=== PATIENT | male | born 1980 | race Caucasian/White ===

== ENCOUNTER 2016-03-22 21:20 | Emergency (ER) | payer MEDICARE, OTHER ==
[2016-03-22] MEDS ORDERED: LORazepam 1 MG TAB PO STA (21:32)
--- NOTE | 2016-03-22 21:34 | ED ---
Anxiety HPI - General Chief Complaint: Anxiety Stated Complaint: panic attacks Time Seen by Provider: 03/22/16 21:28 Source: patient, RN notes reviewed Mode of arrival: wheelchair Limitations: no limitations - History of Present Illness Initial Comments: 35-year-old male presents emergency Department chief complaint panic attack. Patient states he has a history of PTSD, anxiety. Patient states that he does not have is Klonopin states he has not had a for several weeks. Patient states there was a mess up with his refills. Patient states that he is prescribed this by Dr. stringer at [facility]. Patient denies any suicidal or homicidal thoughts. Patient states that he had an argument with his roommate and which this it off. He did have one last night though he was able to talk to a friend to calm down. Patient denies any headache, dizziness, blurred vision, chest pain or shortness breath. Denies any nausea vomiting diarrhea constipation. - Related Data Home Medications: Home Medications Medication Instructions Recorded Confirmed QUEtiapine [SEROquel] 200 mg PO HS 06/30/14 03/22/16 clonazePAM [KlonoPIN] 0.5 mg PO BID 06/30/14 03/22/16 Albuterol Nebulized [Ventolin 2.5 mg INHALATION RT-Q6H PRN 01/26/16 03/22/16 Nebulized] Albuterol Inhaler [Ventolin Hfa 2 puff INHALATION RT-Q6H PRN 03/22/16 03/22/16 Inhaler] buPROPion XL [Wellbutrin Xl] 300 mg PO DAILY 03/22/16 03/22/16 Previous Rx's Medication Instructions Recorded clonazePAM [KlonoPIN] 0.5 mg PO BID #10 tablet 03/22/16 Allergies/Adverse Reactions: Allergies Allergy/AdvReac Type Severity Reaction Status Date / Time varenicline [From Chantix] AdvReac Severe Suicidal Verified 03/22/16 21:33 Thoughts Review of Systems ROS Statement: Those systems with pertinent positive or pertinent negative responses have been documented in the HPI. ROS Other: All systems not noted in ROS Statement are negative. Past Medical History Past Medical History: No Reported History Additional Past Medical History / Comment(s): back pain History of Any Multi-Drug Resistant Organisms: None Reported Past Surgical History: Appendectomy Additional Past Surgical History / Comment(s): oral Past Psychological History: Anxiety, Depression Smoking Status: Current some day smoker Past Alcohol Use History: None Reported Past Drug Use History: None Reported General Exam Limitations: no limitations General appearance: alert, in no apparent distress, anxious ENT exam: Present: normal exam, mucous membranes moist Neck exam: Present: normal inspection. Absent: tenderness, meningismus, lymphadenopathy Respiratory exam: Present: normal lung sounds bilaterally. Absent: respiratory distress, wheezes, rales, rhonchi, stridor Cardiovascular Exam: Present: regular rate, normal rhythm, normal heart sounds. Absent: systolic murmur, diastolic murmur, rubs, gallop, clicks GI/Abdominal exam: Present: soft, normal bowel sounds. Absent: distended, tenderness, guarding, rebound, rigid Psychiatric exam: Present: anxious. Absent: homicidal ideation, suicidal ideation Skin exam: Present: warm, dry, intact, normal color. Absent: rash Course Vital Signs 03/22/16 21:22 Temperature 97.0 F L Pulse Rate 91 Respiratory 22 Rate Blood Pressure 134/91 O2 Sat by Pulse 99 Oximetry Medical Decision Making - Medical Decision Making 35-year-old male presented for a panic attack. Patient does feel improved after Ativan. Patient's maps does reveal that he is due for a prescription. Patient will be discharged with Klonopin with follow-up with his [facility] psychiatrist. Disposition Clinical Impression: Panic attack Disposition: HOME SELF-CARE Condition: Stable Instructions: Generalized Anxiety Disorder (ED) Additional Instructions: Please return to the Emergency Department if symptoms worsen or any other concerns. Prescriptions: clonazePAM [KlonoPIN] 0.5 mg PO BID #10 tablet Time of Disposition: 22:25
[2016-03-22 22:37] VITALS: BP 114/57; PULSE 78; RESP 18; TEMP 98.2
== END 2016-03-22 22:30 | disposition home or self-care (01) ==
LOC: EC 21:20
DX: F41.0 Panic disorder [episodic paroxysmal anxiety] (principal); F41.9 Anxiety disorder, unspecified; F43.10 Post-traumatic stress disorder, unspecified; Z79.899 Other long term (current) drug therapy; Z88.8 Allergy status to other drugs, medicaments and biological substances; F17.200 Nicotine dependence, unspecified, uncomplicated
CPT/HCPCS: 99283

== ENCOUNTER 2017-01-21 16:44 | Emergency (ER) | payer MEDICARE, OTHER ==
[2017-01-21 16:53] LABS: Glucose,Whole Blood 125 mg/dL (75-99)
[2017-01-21 16:56] VITALS: TEMP 98.5
[2017-01-21] MEDS ORDERED: SODIUM CHLORIDE 0.9% 1,000 ML IV STA (17:48)
[2017-01-21] MEDS ORDERED: FAMOTIDINE 20 MG/2 ML VIAL IV STA (17:48)
[2017-01-21] MEDS ORDERED: ONDANSETRON 4 MG/2 ML VIAL IVP STA (17:48)
--- NOTE | 2017-01-21 17:52 | ED ---
General Adult HPI - General Chief complaint: Nausea/Vomiting/Diarrhea Stated complaint: Hypoglycemia Time Seen by Provider: 01/21/17 17:40 Source: patient, RN notes reviewed Mode of arrival: wheelchair Limitations: no limitations - History of Present Illness Initial comments: 36-year-old male presents to the emergency department with concern for hypoglycemia. Patient has been having nausea vomiting and diarrhea on and off for the last week or so. He does not have much down. We did a random check of his glucose at home that was 76 and they were concerned. He states he was feeling a little off when this was taken he said he had a little lightheadedness. He states he has just generalized abdominal cramping. He thought he just had the stomach flu but then he started to feel kind of weak so he thought that he should be evaluated. Besides back pain he denies any significant health history. Patient denies any recent fever, chills, shortness of breath, chest pain, back pain, abdominal pain, numbness or tingling, dysuria or hematuria, constipation, headaches or visual changes, or any other current symptoms. - Related Data Home Medications Medication Instructions Recorded Confirmed QUEtiapine [SEROquel] 200 mg PO HS 06/30/14 01/21/17 clonazePAM [KlonoPIN] 0.5 mg PO TID 06/30/14 01/21/17 buPROPion XL [Wellbutrin Xl] 300 mg PO DAILY 03/22/16 01/21/17 Fluticasone Furoate [Arnuity 1 puff INHALATION RT-DAILY 01/21/17 01/21/17 Ellipta] Previous Rx's Medication Instructions Recorded Ondansetron Odt [Zofran ODT] 4 mg PO Q8HR PRN #20 tab 01/21/17 Allergies Allergy/AdvReac Type Severity Reaction Status Date / Time varenicline [From Chantix] AdvReac Severe Suicidal Verified 01/21/17 18:25 Thoughts Review of Systems ROS Statement: Those systems with pertinent positive or pertinent negative responses have been documented in the HPI. ROS Other: All systems not noted in ROS Statement are negative. Past Medical History Past Medical History: No Reported History Additional Past Medical History / Comment(s): back pain History of Any Multi-Drug Resistant Organisms: None Reported Past Surgical History: Appendectomy Additional Past Surgical History / Comment(s): oral Past Psychological History: Anxiety, Depression Smoking Status: Current every day smoker Past Alcohol Use History: None Reported Past Drug Use History: None Reported General Exam - General Exam Comments Initial Comments: General: The patient is awake and alert, in no distress, and does not appear acutely ill. Eye: Pupils are equal, round and reactive to light, extra-ocular movements are intact; there is normal conjunctiva bilaterally. No signs of icterus. Ears, nose, mouth and throat: There are moist mucous membranes and no oral lesions. Neck: The neck is supple, there is no tenderness. Cardiovascular: There is a regular rate and rhythm. No murmur, rub or gallop is appreciated. Respiratory: Lungs are clear to auscultation, respirations are non-labored, breath sounds are equal. No wheezes, stridor, rales, or rhonchi. Gastrointestinal: Soft, non-distended, non-tender abdomen without masses or organomegaly noted. There is no rebound or guarding present. No CVA tenderness. Bowel sounds are unremarkable. Back: There is no tenderness to palpation in the midline. There is no obvious deformity. No rashes noted. Musculoskeletal: Normal ROM, no tenderness, There is no pedal edema. There is no calf tenderness or swelling. Sensation intact. Pulses equal bilaterally 2+. Neurological: CN II-XII intact, There are no obvious motor or sensory deficits. Coordination appears grossly intact. Speech is normal. Skin: Skin is warm and dry and no rashes or lesions are noted. Psychiatric: Cooperative, appropriate mood & affect, normal judgment. Limitations: no limitations Course Vital Signs 01/21/17 01/21/17 16:54 19:00 Temperature 98.5 F Pulse Rate 89 77 Respiratory 18 17 Rate Blood Pressure 145/88 125/77 O2 Sat by Pulse 96 94 L Oximetry Medical Decision Making - Medical Decision Making 36-year-old male presents emergency Department with a chief complaint of nausea vomiting and diarrhea with concern for hypoglycemia. At this time patient's glucose has been stable. There is been no nausea or vomiting since receiving medication. This time we discussed most likely viral like syndrome. We discussed follow-up return parameters all questions. Patient stated he understood the plan. Discharged. - Lab Data Result diagrams: 01/21/17 18:10 01/21/17 18:10 Lab Results 01/21/17 01/21/17 01/21/17 Range/Units 16:51 18:10 18:10 WBC (3.8-10.6) k/uL RBC (4.30-5.90) m/uL Hgb (13.0-17.5) gm/dL Hct (39.0-53.0) % MCV (80.0-100.0) fL MCH (25.0-35.0) pg MCHC (31.0-37.0) g/dL RDW (11.5-15.5) % Plt Count (150-450) k/uL Neutrophils % % Lymphocytes % % Monocytes % % Eosinophils % % Basophils % % Neutrophils # (1.3-7.7) k/uL Lymphocytes # (1.0-4.8) k/uL Monocytes # (0-1.0) k/uL Eosinophils # (0-0.7) k/uL Basophils # (0-0.2) k/uL Sodium 142 (137-145) mmol/L Potassium 4.3 (3.5-5.1) mmol/L Chloride 104 (98-107) mmol/L Carbon Dioxide 24 (22-30) mmol/L Anion Gap 14 mmol/L BUN 15 (9-20) mg/dL Creatinine 1.16 (0.66-1.25) mg/dL Est GFR (MDRD) Af Amer >60 (>60 ml/min/1.73 sqM) Est GFR (MDRD) Non-Af >60 (>60 ml/min/1.73 sqM) Glucose 112 H (74-99) mg/dL POC Glucose (mg/dL) 125 H (75-99) mg/dL POC Glu Drop Clipper ID Elissa Gage Calcium 10.4 H (8.4-10.2) mg/dL Total Bilirubin 0.6 (0.2-1.3) mg/dL AST 19 (17-59) U/L ALT 31 (21-72) U/L Alkaline Phosphatase 70 (38-126) U/L Total Protein 8.8 H (6.3-8.2) g/dL Albumin 5.3 H (3.5-5.0) g/dL Amylase 55 (30-110) U/L Lipase 39 (23-300) U/L Urine Color Yellow Urine Appearance Clear (Clear) Urine pH 6.0 (5.0-8.0) Ur Specific [place] 1.009 (1.001-1.035) Urine Protein Negative (Negative) Urine Glucose (UA) Negative (Negative) Urine Ketones Negative (Negative) Urine Blood Negative (Negative) Urine Nitrite Negative (Negative) Urine Bilirubin Negative (Negative) Urine Urobilinogen <2.0 (<2.0) mg/dL Ur Leukocyte Esterase Negative (Negative) 01/21/17 Range/Units 18:10 WBC 5.4 (3.8-10.6) k/uL RBC 5.69 (4.30-5.90) m/uL Hgb 16.9 (13.0-17.5) gm/dL Hct 52.3 (39.0-53.0) % MCV 91.9 (80.0-100.0) fL MCH 29.7 (25.0-35.0) pg MCHC 32.3 (31.0-37.0) g/dL RDW 14.5 (11.5-15.5) % Plt Count 241 (150-450) k/uL Neutrophils % 69 % Lymphocytes % 22 % Monocytes % 6 % Eosinophils % 1 % Basophils % 1 % Neutrophils # 3.7 (1.3-7.7) k/uL Lymphocytes # 1.2 (1.0-4.8) k/uL Monocytes # 0.3 (0-1.0) k/uL Eosinophils # 0.0 (0-0.7) k/uL Basophils # 0.0 (0-0.2) k/uL Sodium (137-145) mmol/L Potassium (3.5-5.1) mmol/L Chloride (98-107) mmol/L Carbon Dioxide (22-30) mmol/L Anion Gap mmol/L BUN (9-20) mg/dL Creatinine (0.66-1.25) mg/dL Est GFR (MDRD) Af Amer (>60 ml/min/1.73 sqM) Est GFR (MDRD) Non-Af (>60 ml/min/1.73 sqM) Glucose (74-99) mg/dL POC Glucose (mg/dL) (75-99) mg/dL POC Glu Drop Clipper ID Calcium (8.4-10.2) mg/dL Total Bilirubin (0.2-1.3) mg/dL AST (17-59) U/L ALT (21-72) U/L Alkaline Phosphatase (38-126) U/L Total Protein (6.3-8.2) g/dL Albumin (3.5-5.0) g/dL Amylase (30-110) U/L Lipase (23-300) U/L Urine Color Urine Appearance (Clear) Urine pH (5.0-8.0) Ur Specific [place] (1.001-1.035) Urine Protein (Negative) Urine Glucose (UA) (Negative) Urine Ketones (Negative) Urine Blood (Negative) Urine Nitrite (Negative) Urine Bilirubin (Negative) Urine Urobilinogen (<2.0) mg/dL Ur Leukocyte Esterase (Negative) - Radiology Data Radiology results: report reviewed, image reviewed Disposition Clinical Impression: Nausea & vomiting Disposition: HOME SELF-CARE Condition: Stable Instructions: Acute Nausea and Vomiting (ED) Additional Instructions: Please use medication as discussed. Please follow up with family doctor if symptoms have not improved over the next two days. Please return to the emergency room if your symptoms increase or worsen or for any other concerns. Prescriptions: Ondansetron Odt [Zofran ODT] 4 mg PO Q8HR PRN #20 tab PRN Reason: Nausea Referrals: Buck Hansen DO [Primary Care Provider] - 1-2 days Time of Disposition: 19:43
[2017-01-21 18:21] LABS: Appearance,Urine Clear (Clear); Bilirubin,Urine Negative (Negative); Glucose,Urine (UA) Negative (Negative); Ketones,Urine Negative (Negative); Leukocyte Esterase,Urine Negative (Negative); Nitrite,Urine Negative (Negative); Protein,Urine Negative (Negative); Specific Gravity,Urine 1.009 (1.001-1.035); UA Billing (MACRO vs. MICRO) CHEM; Urobilinogen,Urine <2.0 mg/dL (<2.0)
[2017-01-21 18:40] LABS: Basophils % (A) 1 %; CH 31.2; CHCM 34.1; Eosinophils % (A) 1 %; HCT 52.3 % (39.0-53.0); HDW 2.29; HGB 16.9 gm/dL (13.0-17.5); Luc # (Auto) 0.11; Luc % (Auto) 2; Lymphocytes # (A) 1.2 k/uL (1.0-4.8); Lymphocytes % (A) 22 %; MCH 29.7 pg (25.0-35.0); MCHC 32.3 g/dL (31.0-37.0); MCV 91.9 fL (80.0-100.0); Mean Platelet Volume 9.3; Monocytes # (A) 0.3 k/uL (0-1.0); Monocytes % (A) 6 %; Neutrophils # (A) 3.7 k/uL (1.3-7.7); Neutrophils % (A) 69 %; RBC 5.69 m/uL (4.30-5.90); RDW 14.5 % (11.5-15.5); WBC 5.4 k/uL (3.8-10.6); WBC (Perox) 5.41
[2017-01-21 18:49] LABS: ALT 31 U/L (21-72); AST 19 U/L (17-59); Alkaline Phosphatase 70 U/L (38-126); Amylase 55 U/L (30-110); Anion Gap 14 mmol/L; Blood Urea Nitrogen 15 mg/dL (9-20); Calcium 10.4 mg/dL (8.4-10.2); Carbon Dioxide 24 mmol/L (22-30); Chloride 104 mmol/L (98-107); Glucose 112 mg/dL (74-99); Non-African American GFR(MDRD) >60 (>60 ml/min/1.73 sqM); Potassium 4.3 mmol/L (3.5-5.1); Sodium 142 mmol/L (137-145); Total Bilirubin 0.6 mg/dL (0.2-1.3); Total Protein 8.8 g/dL (6.3-8.2)
[2017-01-21 19:01] VITALS: BP 125/77; PULSE 77; RESP 17
--- NOTE | 2017-01-21 19:20 | XR ---
EXAMINATION TYPE: XR abdomen 2V DATE OF EXAM: 01/21/2017 COMPARISON: 06/30/2014 HISTORY: Nausea and vomiting TECHNIQUE: 3 views FINDINGS: There is no sign of intestinal obstruction or pneumoperitoneum. Fecal pattern is normal. Th ere are no pathologic calcifications over the kidneys. Lung bases are clear. There is no evidence of a mass. IMPRESSION: Nonacute abdomen. No change.
== END 2017-01-21 20:13 | disposition home or self-care (01) ==
LOC: EC 16:44
DX: R11.2 Nausea with vomiting, unspecified (principal); R19.7 Diarrhea, unspecified; R42 Dizziness and giddiness; R10.84 Generalized abdominal pain; F32.9 Major depressive disorder, single episode, unspecified; F41.9 Anxiety disorder, unspecified; F17.200 Nicotine dependence, unspecified, uncomplicated; Z79.51 Long term (current) use of inhaled steroids; Z79.899 Other long term (current) drug therapy; Z88.8 Allergy status to other drugs, medicaments and biological substances; Z90.49 Acquired absence of other specified parts of digestive tract
CPT/HCPCS: 36415; 80053; 82150; 83690; 85025; 81003; 74020; 99285; 96374; 96375; 96361; J2405

== ENCOUNTER 2017-05-17 17:06 | Emergency (ER) | payer MEDICARE, OTHER ==
[2017-05-17 17:17] VITALS: BP 138/72; PULSE 66; RESP 18; TEMP 97.7
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
== END 2017-05-17 18:34 | disposition home or self-care (01) ==
LOC: EC 17:06
DX: S16.1XXA Strain of muscle, fascia and tendon at neck level, initial encounter (principal); F41.9 Anxiety disorder, unspecified; F32.9 Major depressive disorder, single episode, unspecified; F17.200 Nicotine dependence, unspecified, uncomplicated; Z79.51 Long term (current) use of inhaled steroids; Z79.899 Other long term (current) drug therapy; Z88.8 Allergy status to other drugs, medicaments and biological substances; V49.49XA Driver injured in collision with other motor vehicles in traffic accident, initial encounter
CPT/HCPCS: 70450; 72125; 99284

== ENCOUNTER → 2017-06-08 | Outpatient (CLI) | payer MEDICARE ==
--- NOTE | 2017-06-08 10:55 | XR ---
EXAMINATION TYPE: XR thoracic spine complete DATE OF EXAM: 06/08/2017 COMPARISON: NONE HISTORY: Pain Alignment is anatomic. There is no compression deformities. Vertebral body height and disc interspa nena are maintained. There is a curvature of the thoracic spine. Hypertrophic and degenerative change of the spine noted. IMPRESSION: 1. Scoliotic curvature with multilevel degenerative disc disease.
== END | disposition home or self-care (01) ==
LOC: RADXRMAIN 10:02
PROVIDERS: ATTEND Family Medicine
DX: M51.34 Other intervertebral disc degeneration, thoracic region (principal); M41.9 Scoliosis, unspecified
CPT/HCPCS: 72072

== ENCOUNTER → 2018-01-24 | Outpatient (CLI) | payer MEDICARE ==
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
== END | disposition home or self-care (01) ==
LOC: RADXRMAIN 15:49
PROVIDERS: ATTEND Family Medicine
DX: S99.922A Unspecified injury of left foot, initial encounter (principal)

== ENCOUNTER 2018-04-22 19:36 | Emergency (ER) | payer MEDICARE, OTHER ==
[2018-04-22 19:58] VITALS: TEMP 97.6
[2018-04-22] MEDS ORDERED: LORazepam 1 MG TAB PO STA (20:28)
[2018-04-22] MEDS ORDERED: ASPIRIN 81 MG PO STA (20:28)
[2018-04-22] MEDS ORDERED: SODIUM CHLORIDE 0.9% 1,000 ML IV STA ×2 (20:28)
--- NOTE | 2018-04-22 20:29 | ED ---
Recheck HPI - General Source: patient, RN notes reviewed, old records reviewed Mode of arrival: ambulatory Limitations: no limitations <Raeann Kothari - Last Filed: 04/22/18 22:36> <Jordana Hairston - Last Filed: 04/22/18 23:45> - General Chief Complaint: Recheck/Abnormal Lab/Rx Stated Complaint: REED Time Seen by Provider: 04/22/18 20:16 - History of Present Illness Initial Comments: Patient is a 37-year-old male who presents emergency Department today with complaints of episode of chest pain diarrhea headache and dizziness one hour prior to arrival. Patient also reports that he was short of breath. He reports that symptoms started suddenly when he was playing a video game. Patient reports he said multiple episodes of diarrhea. Patient states that he has had chest pain still upon arrival. He reports that he is a nonsmoker. He states that he has had no nausea or vomiting. Denies any other associated symptoms. (Raeann Kothari) - Related Data Home Medications Medication Instructions Recorded Confirmed QUEtiapine [SEROquel] 200 mg PO HS 06/30/14 04/22/18 clonazePAM [KlonoPIN] 0.5 mg PO Q8H PRN 06/30/14 04/22/18 buPROPion XL [Wellbutrin Xl] 300 mg PO DAILY 03/22/16 04/22/18 Fluticasone Furoate [Arnuity 1 puff INHALATION RT-DAILY 01/21/17 04/22/18 Ellipta] Indomethacin [Indocin] 50 mg PO TID 04/22/18 04/22/18 QUEtiapine [SEROquel] 50 mg PO HS 04/22/18 04/22/18 buPROPion HCL [Wellbutrin XL] 150 mg PO DAILY 04/22/18 04/22/18 Allergies Allergy/AdvReac Type Severity Reaction Status Date / Time varenicline [From Chantix] AdvReac Severe Suicidal Verified 04/22/18 20:34 Thoughts Review of Systems ROS Other: All systems not noted in ROS Statement are negative. <Raeann Kothari - Last Filed: 04/22/18 22:36> ROS Other: All systems not noted in ROS Statement are negative. <Jordana Hairston P - Last Filed: 04/22/18 23:45> ROS Statement: Those systems with pertinent positive or pertinent negative responses have been documented in the HPI. Past Medical History Past Medical History: No Reported History Additional Past Medical History / Comment(s): back pain History of Any Multi-Drug Resistant Organisms: None Reported Past Surgical History: Appendectomy Additional Past Surgical History / Comment(s): oral Past Psychological History: Anxiety, Depression Smoking Status: Current every day smoker Past Alcohol Use History: None Reported Past Drug Use History: None Reported <Raeann Kothari - Last Filed: 04/22/18 22:36> General Exam Limitations: no limitations General appearance: alert, in no apparent distress Head exam: Present: atraumatic, normocephalic, normal inspection Eye exam: Present: normal appearance, PERRL, EOMI. Absent: scleral icterus, conjunctival injection, periorbital swelling ENT exam: Present: normal exam, mucous membranes moist Neck exam: Present: normal inspection. Absent: tenderness, meningismus, lymphadenopathy Respiratory exam: Present: normal lung sounds bilaterally. Absent: respiratory distress, wheezes, rales, rhonchi, stridor Cardiovascular Exam: Present: regular rate, normal rhythm, normal heart sounds. Absent: systolic murmur, diastolic murmur, rubs, gallop, clicks GI/Abdominal exam: Present: soft, tenderness (Patient reports that left lower quadrant tenderness likely related to diarrhea.), normal bowel sounds. Absent: distended, guarding, rebound, rigid Extremities exam: Present: normal inspection, full ROM, normal capillary refill. Absent: tenderness, pedal edema, joint swelling, calf tenderness Back exam: Present: normal inspection Neurological exam: Present: alert, oriented X3, CN II-XII intact Psychiatric exam: Present: normal affect, normal mood <Raeann Kothari - Last Filed: 04/22/18 22:36> <Jordana Hairston - Last Filed: 04/22/18 23:45> - General Exam Comments Initial Comments: Anxious 37-year-old male. (Raeann Kothari) Vital Signs 04/22/18 04/22/18 04/22/18 19:54 20:15 20:20 Temperature 97.6 F Pulse Rate 110 H 92 Respiratory 18 11 L Rate Blood Pressure 99/68 O2 Sat by Pulse 99 99 99 Oximetry 04/22/18 04/22/18 04/22/18 20:30 20:43 20:50 Temperature Pulse Rate 92 89 Respiratory 19 16 19 Rate Blood Pressure O2 Sat by Pulse 100 98 99 Oximetry 04/22/18 04/22/18 04/22/18 21:10 21:30 21:40 Temperature Pulse Rate 96 101 H 88 Respiratory 19 19 18 Rate Blood Pressure 114/92 114/92 113/73 O2 Sat by Pulse 97 98 98 Oximetry 04/22/18 22:10 Temperature Pulse Rate 92 Respiratory 16 Rate Blood Pressure 115/80 O2 Sat by Pulse 97 Oximetry Medical Decision Making - Lab Data Result diagrams: 04/22/18 20:21 04/22/18 20:21 - Radiology Data Radiology results: report reviewed <Raeann Kothari - Last Filed: 04/22/18 22:36> - Lab Data Result diagrams: 04/22/18 20:21 04/22/18 20:21 <Jordana Hairston - Last Filed: 04/22/18 23:45> - Medical Decision Making 37-year-old male presents measurement today with complaints of chest pain dizziness episodes of diarrhea all happy one part where hour prior to arrival. Symptoms started when he is playing a video game. He appeared quite anxious on initial exam. He was given fluids and 0.5 mg of Ativan and aspirin. He continued to complain of some chest pain. His EKG does show a couple of T-wave abnormalities noted. Initial troponin and other lab work was unremarkable. On reevaluation he states he is feeling much better. He states he does still have 1 out of 10 for chest pain. Offered to admit the Patient with consult to cardiology. Patient states he feels well and will likely to be discharged home. I discussed the Patient be signing AGAINST MEDICAL ADVICE. Discussed strict return parameters. Patient states he will follow-up with his PCP. ( Raeann Kothari) I was available for consultation in the emergency department. The history and physical exam were done by the midlevel provider. I was consulted for this patient's care. I reviewed the case with the midlevel provider and based on their presentation of the patient, I agree with the assessment, medical decision making and plan of care as documented. I did review the patient's previous EKG as well as EKG obtained today, did note that there is new T-wave inversions in the lateral leads. I did agree with the plan for admission to the hospital for further valuation by cardiology given the patient's strong family history and EKG changes as well as persistent chest pain. Patient was not willing to stay and signed out AMA. (Jordana Hairston) - Lab Data Lab Results 04/22/18 04/22/18 04/22/18 Range/Units 20:21 20:21 20:21 WBC 11.0 H (3.8-10.6) k/uL RBC 5.86 (4.30-5.90) m/uL Hgb 17.8 H (13.0-17.5) gm/dL Hct 51.1 (39.0-53.0) % MCV 87.2 (80.0-100.0) fL MCH 30.3 (25.0-35.0) pg MCHC 34.8 (31.0-37.0) g/dL RDW 13.6 (11.5-15.5) % Plt Count 280 (150-450) k/uL Neutrophils % 83 % Lymphocytes % 11 % Monocytes % 3 % Eosinophils % 2 % Basophils % 0 % Neutrophils # 9.1 H (1.3-7.7) k/uL Lymphocytes # 1.2 (1.0-4.8) k/uL Monocytes # 0.3 (0-1.0) k/uL Eosinophils # 0.3 (0-0.7) k/uL Basophils # 0.0 (0-0.2) k/uL PT (9.0-12.0) sec INR (<1.2) APTT (22.0-30.0) sec Sodium 141 (137-145) mmol/L Potassium 3.5 (3.5-5.1) mmol/L Chloride 103 (98-107) mmol/L Carbon Dioxide 23 (22-30) mmol/L Anion Gap 15 mmol/L BUN 22 H (9-20) mg/dL Creatinine 1.40 H (0.66-1.25) mg/dL Est GFR (CKD-EPI)AfAm 73 (>60 ml/min/1.73 sqM) Est GFR (CKD-EPI)NonAf 63 (>60 ml/min/1.73 sqM) Glucose 158 H (74-99) mg/dL Calcium 9.7 (8.4-10.2) mg/dL Magnesium 1.8 (1.6-2.3) mg/dL Total Bilirubin 0.6 (0.2-1.3) mg/dL AST 21 (17-59) U/L ALT 35 (21-72) U/L Alkaline Phosphatase 81 (38-126) U/L Total Creatine Kinase 99 (55-170) U/L CK-MB (CK-2) 0.9 (0.0-2.4) ng/mL CK-MB (CK-2) Rel Index 0.9 Troponin I <0.012 (0.000-0.034) ng/mL Total Protein 8.1 (6.3-8.2) g/dL Albumin 4.8 (3.5-5.0) g/dL Amylase 63 (30-110) U/L Lipase 62 (23-300) U/L 04/22/18 Range/Units 20:21 WBC (3.8-10.6) k/uL RBC (4.30-5.90) m/uL Hgb (13.0-17.5) gm/dL Hct (39.0-53.0) % MCV (80.0-100.0) fL MCH (25.0-35.0) pg MCHC (31.0-37.0) g/dL RDW (11.5-15.5) % Plt Count (150-450) k/uL Neutrophils % % Lymphocytes % % Monocytes % % Eosinophils % % Basophils % % Neutrophils # (1.3-7.7) k/uL Lymphocytes # (1.0-4.8) k/uL Monocytes # (0-1.0) k/uL Eosinophils # (0-0.7) k/uL Basophils # (0-0.2) k/uL PT 11.6 (9.0-12.0) sec INR 1.1 (<1.2) APTT 22.5 (22.0-30.0) sec Sodium (137-145) mmol/L Potassium (3.5-5.1) mmol/L Chloride (98-107) mmol/L Carbon Dioxide (22-30) mmol/L Anion Gap mmol/L BUN (9-20) mg/dL Creatinine (0.66-1.25) mg/dL Est GFR (CKD-EPI)AfAm (>60 ml/min/1.73 sqM) Est GFR (CKD-EPI)NonAf (>60 ml/min/1.73 sqM) Glucose (74-99) mg/dL Calcium (8.4-10.2) mg/dL Magnesium (1.6-2.3) mg/dL Total Bilirubin (0.2-1.3) mg/dL AST (17-59) U/L ALT (21-72) U/L Alkaline Phosphatase (38-126) U/L Total Creatine Kinase (55-170) U/L CK-MB (CK-2) (0.0-2.4) ng/mL CK-MB (CK-2) Rel Index Troponin I (0.000-0.034) ng/mL Total Protein (6.3-8.2) g/dL Albumin (3.5-5.0) g/dL Amylase (30-110) U/L Lipase (23-300) U/L 04/22/18 22:40 EKG shows sinus rhythm with occasional premature supraventricular [place]. Nonspecific T-wave abnormality. Ventricular rate of 70 bpm. Verbal is 158. QRS duration 88. QTQTC 3-2/412 ms. (Raeann Kothari) - Radiology Data Normal chest x-ray. (Raeann Kothari) Disposition Is patient prescribed a controlled substance at d/c from ED?: No Time of Disposition: 22:32 <Raeann Kothari - Last Filed: 04/22/18 22:36> <Jordana Hairston - Last Filed: 04/22/18 23:45> Clinical Impression: Chest pain Disposition: Left Against Medical Advice Condition: Stable Instructions (If sedation given, give patient instructions): Chest Pain (ED) Additional Instructions: Patient myself close follow-up with primary care physician. Return to emergency department if any alarming signs or symptoms occur. Referrals: Buck Hansen DO [Primary Care Provider] - 1-2 days
[2018-04-22 20:51] LABS: Basophils % (A) 0 %; Eosinophils # (A) 0.3 k/uL (0-0.7); Eosinophils % (A) 2 %; HCT 51.1 % (39.0-53.0); HGB 17.8 gm/dL (13.0-17.5); Lymphocytes # (A) 1.2 k/uL (1.0-4.8); Lymphocytes % (A) 11 %; MCH 30.3 pg (25.0-35.0); MCHC 34.8 g/dL (31.0-37.0); MCV 87.2 fL (80.0-100.0); Mean Platelet Volume 8.1; Monocytes # (A) 0.3 k/uL (0-1.0); Monocytes % (A) 3 %; Neutrophils # (A) 9.1 k/uL (1.3-7.7); Neutrophils % (A) 83 %; Platelet Count 280 k/uL (150-450); RBC 5.86 m/uL (4.30-5.90); RDW 13.6 % (11.5-15.5)
[2018-04-22 21:00] LABS: INR 1.1 (<1.2); Partial Thromboplastin Time 22.5 sec (22.0-30.0); Prothrombin Time 11.6 sec (9.0-12.0)
[2018-04-22 21:01] LABS: Albumin 4.8 g/dL (3.5-5.0); Calcium 9.7 mg/dL (8.4-10.2); Magnesium 1.8 mg/dL (1.6-2.3); Potassium 3.5 mmol/L (3.5-5.1); Total Bilirubin 0.6 mg/dL (0.2-1.3); Total Protein 8.1 g/dL (6.3-8.2)
[2018-04-22 21:05] LABS: Creatine Kinase 99 U/L (55-170)
--- NOTE | 2018-04-22 21:07 | XR ---
EXAMINATION TYPE: XR chest 2V DATE OF EXAM: 04/22/2018 COMPARISON: 12/28/2015 HISTORY: Chest pain TECHNIQUE: Frontal and lateral views of the chest are obtained. FINDINGS: Heart and mediastinum are normal. Lungs are clear. Diaphragm is normal. Bony thorax appear s normal. IMPRESSION: Normal chest. No change.
[2018-04-22 21:18] LABS: Creatine Kinase MB 0.9 ng/mL (0.0-2.4); Troponin I <0.012 ng/mL (0.000-0.034)
[2018-04-22 22:39] VITALS: BP 115/80; PULSE 92
[2018-04-22 22:40] VITALS: RESP 16
== END 2018-04-22 22:34 | disposition left against medical advice (07) ==
LOC: EC 19:36
DX: R07.9 Chest pain, unspecified (principal); R42 Dizziness and giddiness; R19.7 Diarrhea, unspecified; R06.02 Shortness of breath; R51 Headache; R10.814 Left lower quadrant abdominal tenderness; F41.9 Anxiety disorder, unspecified; F32.9 Major depressive disorder, single episode, unspecified; F17.200 Nicotine dependence, unspecified, uncomplicated; Z79.51 Long term (current) use of inhaled steroids; Z79.899 Other long term (current) drug therapy; Z88.8 Allergy status to other drugs, medicaments and biological substances
CPT/HCPCS: 36415; 71046; 80053; 82150; 82550; 82553; 83690; 83735; 84484; 85025; 85610; 85730; 93005; 96360; 99285

== ENCOUNTER 2018-09-02 15:09 | Emergency (ER) | payer MEDICARE ==
[2018-09-02 16:02] LABS: Basophils # (A) 0.1 k/uL (0-0.2); Basophils % (A) 1 %; Eosinophils # (A) 0.1 k/uL (0-0.7); Eosinophils % (A) 3 %; HGB 14.2 gm/dL (13.0-17.5); Lymphocytes # (A) 1.1 k/uL (1.0-4.8); Lymphocytes % (A) 27 %; MCH 29.5 pg (25.0-35.0); MCHC 34.5 g/dL (31.0-37.0); MCV 85.4 fL (80.0-100.0); Mean Platelet Volume 8.8; Monocytes # (A) 0.2 k/uL (0-1.0); Monocytes % (A) 6 %; Neutrophils # (A) 2.4 k/uL (1.3-7.7); Neutrophils % (A) 60 %; Platelet Count 169 k/uL (150-450); RDW 13.6 % (11.5-15.5)
[2018-09-02 16:13] LABS: ALT 49 U/L (21-72); AST 46 U/L (17-59); African American GFR (CKD) >90 (>60 ml/min/1.73 sqM); Albumin 4.5 g/dL (3.5-5.0); Alkaline Phosphatase 61 U/L (38-126); Amylase 61 U/L (30-110); Anion Gap 10 mmol/L; Blood Urea Nitrogen 12 mg/dL (9-20); Calcium 9.5 mg/dL (8.4-10.2); Carbon Dioxide 26 mmol/L (22-30); Chloride 103 mmol/L (98-107); Glucose 119 mg/dL (74-99); Lipase 23 U/L (23-300); Potassium 3.9 mmol/L (3.5-5.1); Sodium 139 mmol/L (137-145); Total Bilirubin 0.5 mg/dL (0.2-1.3); Total Protein 7.4 g/dL (6.3-8.2)
--- NOTE | 2018-09-02 16:25 | XR ---
EXAMINATION TYPE: XR KUB DATE OF EXAM: 09/02/2018 4:10 PM CLINICAL HISTORY: Mid abdominal pain and dysuria TECHNIQUE: Single upright image of the abdomen is obtained. COMPARISON: None. FINDINGS: Mild levoscoliosis of the thoracolumbar spine is seen. Scattered gas is seen in non-distend ed small bowel loops. Gas and fecal material is seen in non-distended colon. There is no visceromegal y, pneumoperitoneum, or abnormal calcification appreciated. The lung bases are clear and the osseous structures are intact. IMPRESSION: Nonobstructive bowel gas pattern. No radiopaque calculi in the abdomen or pelvis.
[2018-09-02 17:09] LABS: Appearance,Urine Clear (Clear); Bilirubin,Urine Negative (Negative); Blood,Urine Negative (Negative); Color,Urine Light Yellow; Glucose,Urine (UA) Negative (Negative); Ketones,Urine Negative (Negative); Leukocyte Esterase,Urine Negative (Negative); Nitrite,Urine Negative (Negative); PH, Urine 6.5 (5.0-8.0); Protein,Urine Negative (Negative); Urobilinogen,Urine <2.0 mg/dL (<2.0)
--- NOTE | 2018-09-02 17:30 | ED ---
Abdominal Pain HPI - General Chief Complaint: Abdominal Pain Stated Complaint: Rectal bleed Time Seen by Provider: 09/02/18 16:41 Source: patient Mode of arrival: ambulatory Limitations: no limitations - History of Present Illness Initial Comments: Patient is a 37-year-old male presents emergency Department with abdominal pain. Patient reports generalized pain that has started this morning and has maintained in severity. Patient reports the pain is colicky in nature and rates it a 6. Patient reports chronic abdominal pain due to diverticulosis and IBS. Patient reports the pain is not related to oral fluid intake. Patient denies fever, nausea, vomiting, diarrhea. Patient denies testicular pain, dysuria, increased urgency or frequency. Patient denies taking any medication to alleviate the pain. Patient denies shortness of breath, chest pain or chest tightness. - Related Data Home Medications Medication Instructions Recorded Confirmed QUEtiapine [SEROquel] 200 mg PO HS 06/30/14 04/22/18 clonazePAM [KlonoPIN] 0.5 mg PO Q8H PRN 06/30/14 04/22/18 buPROPion XL [Wellbutrin Xl] 300 mg PO DAILY 03/22/16 04/22/18 Fluticasone Furoate [Arnuity 1 puff INHALATION RT-DAILY 01/21/17 04/22/18 Ellipta] Indomethacin [Indocin] 50 mg PO TID 04/22/18 04/22/18 QUEtiapine [SEROquel] 50 mg PO HS 04/22/18 04/22/18 buPROPion HCL [Wellbutrin XL] 150 mg PO DAILY 04/22/18 04/22/18 Allergies Allergy/AdvReac Type Severity Reaction Status Date / Time varenicline [From Chantix] AdvReac Severe Suicidal Verified 09/02/18 15:43 Thoughts Review of Systems ROS Statement: Those systems with pertinent positive or pertinent negative responses have been documented in the HPI. ROS Other: All systems not noted in ROS Statement are negative. Past Medical History Past Medical History: Asthma Additional Past Medical History / Comment(s): back pain, ibs History of Any Multi-Drug Resistant Organisms: None Reported Past Surgical History: Appendectomy Additional Past Surgical History / Comment(s): oral Past Psychological History: Anxiety, Depression Smoking Status: Current every day smoker Past Alcohol Use History: None Reported Past Drug Use History: None Reported General Exam Limitations: no limitations General appearance: alert, in no apparent distress Head exam: Present: atraumatic, normocephalic, normal inspection Eye exam: Present: normal appearance, PERRL, EOMI Pupils: Present: normal accommodation ENT exam: Present: normal exam, mucous membranes moist Neck exam: Present: normal inspection, full ROM Respiratory exam: Present: normal lung sounds bilaterally Cardiovascular Exam: Present: regular rate, normal rhythm, normal heart sounds GI/Abdominal exam: Present: soft, tenderness (Generalized abdominal tenderness on palpation. Negative psoas and Rovsing), normal bowel sounds. Absent: distended, guarding, rebound Extremities exam: Present: normal inspection, full ROM Back exam: Present: normal inspection, full ROM. Absent: tenderness, CVA tenderness (R), CVA tenderness (L) Neurological exam: Present: alert, oriented X3 Psychiatric exam: Present: normal affect, normal mood Skin exam: Present: warm, intact, normal color Course Vital Signs 09/02/18 09/02/18 09/02/18 15:42 16:43 18:21 Temperature 97.8 F 98.7 F 98.7 F Pulse Rate 87 69 69 Respiratory 18 16 16 Rate Blood Pressure 130/92 149/99 149/99 O2 Sat by Pulse 96 98 98 Oximetry Medical Decision Making - Medical Decision Making Patient is a 37-year-old male presents emergency Department with generalized abdominal pain. KUB suggestive of a nonobstructing bowel gas pattern. No radiopaque calculi in the abdomen and pelvis. Labs and UA are unremarkable except for mildly elevated blood glucose. Based on history and physical examination suspect the pain to be related to the diverticulosis and IBS. Patient does not have leukocytosis or fever thus antibiotics are not warranted. On reevaluation patient reports he feels better and the pain has slowly subsided. Patient advised to return to emergency department if he develops fever, nausea, vomiting, diarrhea. Patient is understanding and agreeable with the treatment plan. Patient reports that he is comfortable and ready to leave.. Patient advised to drink more water and increase his intake of fiber. Patient advised to alternate between Tylenol and ibuprofen for pain control. Patient was to follow with GI. Case discussed with physician. - Lab Data Result diagrams: 09/02/18 15:50 09/02/18 15:50 Lab Results 09/02/18 09/02/18 09/02/18 Range/Units 15:50 15:50 17:00 WBC 4.0 (3.8-10.6) k/uL RBC 4.80 (4.30-5.90) m/uL Hgb 14.2 (13.0-17.5) gm/dL Hct 41.0 (39.0-53.0) % MCV 85.4 (80.0-100.0) fL MCH 29.5 (25.0-35.0) pg MCHC 34.5 (31.0-37.0) g/dL RDW 13.6 (11.5-15.5) % Plt Count 169 (150-450) k/uL Neutrophils % 60 % Lymphocytes % 27 % Monocytes % 6 % Eosinophils % 3 % Basophils % 1 % Neutrophils # 2.4 (1.3-7.7) k/uL Lymphocytes # 1.1 (1.0-4.8) k/uL Monocytes # 0.2 (0-1.0) k/uL Eosinophils # 0.1 (0-0.7) k/uL Basophils # 0.1 (0-0.2) k/uL Sodium 139 (137-145) mmol/L Potassium 3.9 (3.5-5.1) mmol/L Chloride 103 (98-107) mmol/L Carbon Dioxide 26 (22-30) mmol/L Anion Gap 10 mmol/L BUN 12 (9-20) mg/dL Creatinine 0.78 (0.66-1.25) mg/dL Est GFR (CKD-EPI)AfAm >90 (>60 ml/min/1.73 sqM) Est GFR (CKD-EPI)NonAf >90 (>60 ml/min/1.73 sqM) Glucose 119 H (74-99) mg/dL Calcium 9.5 (8.4-10.2) mg/dL Total Bilirubin 0.5 (0.2-1.3) mg/dL AST 46 (17-59) U/L ALT 49 (21-72) U/L Alkaline Phosphatase 61 (38-126) U/L Total Protein 7.4 (6.3-8.2) g/dL Albumin 4.5 (3.5-5.0) g/dL Amylase 61 (30-110) U/L Lipase 23 (23-300) U/L Urine Color Light Yellow Urine Appearance Clear (Clear) Urine pH 6.5 (5.0-8.0) Ur Specific [place] 1.010 (1.001-1.035) Urine Protein Negative (Negative) Urine Glucose (UA) Negative (Negative) Urine Ketones Negative (Negative) Urine Blood Negative (Negative) Urine Nitrite Negative (Negative) Urine Bilirubin Negative (Negative) Urine Urobilinogen <2.0 (<2.0) mg/dL Ur Leukocyte Esterase Negative (Negative) Disposition Clinical Impression: Abdominal pain Disposition: HOME SELF-CARE Condition: Stable Instructions (If sedation given, give patient instructions): Abdominal Pain (ED) Additional Instructions: Please return to emergency department if he starts to develop fever, chills, nausea, vomiting or pain does not resolve. Please follow-up with a rags laborer. Please return to emergency department if symptoms worsen. Please drink a lot of water and fiber. Is patient prescribed a controlled substance at d/c from ED?: No Referrals: Buck Hansen DO [Primary Care Provider] - 1-2 days Time of Disposition: 18:17
[2018-09-02 18:21] VITALS: BP 149/99; PULSE 69; RESP 16; TEMP 98.7
== END 2018-09-02 18:23 | disposition home or self-care (01) ==
LOC: EC 15:09
DX: R10.84 Generalized abdominal pain (principal); R73.9 Hyperglycemia, unspecified; J45.909 Unspecified asthma, uncomplicated; F41.9 Anxiety disorder, unspecified; F32.9 Major depressive disorder, single episode, unspecified; F17.200 Nicotine dependence, unspecified, uncomplicated; Z79.51 Long term (current) use of inhaled steroids; Z79.899 Other long term (current) drug therapy; Z88.8 Allergy status to other drugs, medicaments and biological substances; Z90.89 Acquired absence of other organs
CPT/HCPCS: 36415; 74018; 80053; 81003; 82150; 83690; 85025; 99284

== ENCOUNTER 2019-04-03 19:30 | Emergency (ER) | payer MEDICARE, OTHER ==
[2019-04-03] MEDS ORDERED: KETOROLAC 30 MG/ML 1 ML VIAL IVP STA (21:22)
[2019-04-03] MEDS ORDERED: ONDANSETRON 4 MG/2 ML VIAL IVP STA (21:22)
[2019-04-03] MEDS ORDERED: SODIUM CHLORIDE 0.9% 1,000 ML IV STA (21:22)
[2019-04-03 21:38] LABS: Basophils # (A) 0.2 k/uL (0-0.2); Basophils % (A) 3 %; Eosinophils # (A) 0.1 k/uL (0-0.7); Eosinophils % (A) 2 %; HCT 47.2 % (39.0-53.0); HGB 15.7 gm/dL (13.0-17.5); Lymphocytes # (A) 1.6 k/uL (1.0-4.8); Lymphocytes % (A) 27 %; MCH 29.4 pg (25.0-35.0); MCHC 33.2 g/dL (31.0-37.0); MCV 88.6 fL (80.0-100.0); Mean Platelet Volume 9.2; Monocytes # (A) 0.4 k/uL (0-1.0); Monocytes % (A) 6 %; Neutrophils # (A) 3.5 k/uL (1.3-7.7); Neutrophils % (A) 60 %; Platelet Count 235 k/uL (150-450); RBC 5.33 m/uL (4.30-5.90); RDW 12.9 % (11.5-15.5); WBC 5.8 k/uL (3.8-10.6)
[2019-04-03 21:46] LABS: ALT 28 U/L (4-49); AST 28 U/L (17-59); African American GFR (CKD) >90 (>60 ml/min/1.73 sqM); Alkaline Phosphatase 60 U/L (38-126); Amylase 62 U/L (30-110); Anion Gap 13 mmol/L; Appearance,Urine Clear (Clear); Bilirubin,Urine Negative (Negative); Blood Urea Nitrogen 17 mg/dL (9-20); Blood,Urine Negative (Negative); Calcium 9.7 mg/dL (8.4-10.2); Carbon Dioxide 23 mmol/L (22-30); Chloride 104 mmol/L (98-107); Color,Urine Yellow; Glucose 108 mg/dL (74-99); Glucose,Urine (UA) Negative (Negative); Ketones,Urine Negative (Negative); Leukocyte Esterase,Urine Negative (Negative); Mucus,Urine Many /hpf; Nitrite,Urine Negative (Negative); Non-African American GFR(CKD) >90 (>60 ml/min/1.73 sqM); PH, Urine 5.5 (5.0-8.0); Potassium 4.2 mmol/L (3.5-5.1); Protein,Urine 1+ (Negative); RBC,Urine <1 /hpf (0-5); Sodium 140 mmol/L (137-145); Total Bilirubin 0.8 mg/dL (0.2-1.3); Total Protein 8.5 g/dL (6.3-8.2); WBC,Urine 2 /hpf (0-5)
--- NOTE | 2019-04-03 21:55 | XR ---
EXAMINATION TYPE: XR KUB DATE OF EXAM: 04/03/2019 COMPARISON: 09/02/2018 HISTORY: Abdominal pain TECHNIQUE: 2 views supine FINDINGS: There is no sign of intestinal obstruction or pneumoperitoneum. Fecal pattern is normal. Niki ng bases are clear. There are no pathologic calcifications over the kidneys. IMPRESSION: Nonacute abdomen. No change.
--- NOTE | 2019-04-03 23:27 | CT ---
EXAMINATION TYPE: CT abdomen pelvis w con DATE OF EXAM: 04/03/2019 COMPARISON: HISTORY: Patient presents with abdomial pain. CT DLP: 1496.3 mGycm Automated exposure control for dose reduction was used. CONTRAST: Performed with IV Contrast, patient injected with 100mL mL of Isovue 300. None lung bases are clear. There is no pleural effusion. Heart size is normal. There is no cardial ef fusion. Liver spleen pancreas gallbladder appear normal. Bile ducts are not dilated. The stomach is i ntact. There is no adrenal mass. Kidneys show satisfactory contrast opacification. There is no hydronephrosi s. There is no retroperitoneal adenopathy. Bladder distends smoothly. There is no inguinal hernia. Th ere is no free fluid in the pelvis. There are a few sigmoid diverticula. There is no sign of divertic ulitis. There is clip apparently from appendectomy. There is no mesenteric edema. There is no ascites or free air. There is no sign of a bowel obstructio n. Lumbar spine is intact. Bony pelvis is intact. IMPRESSION: Negative CT scan abdomen and pelvis. Scattered small sigmoid diverticula without evidence of divertic ulitis.
--- NOTE | 2019-04-03 23:48 | ED ---
Abdominal Pain HPI - General Chief Complaint: Abdominal Pain Stated Complaint: rib pain Time Seen by Provider: 04/03/19 21:13 Source: patient Mode of arrival: ambulatory Limitations: no limitations - History of Present Illness Initial Comments: 38-year-old male presents emergency room today with abdominal pain. He states this started over the past 5 days. He states it is generalized but is worst in the right and left midabdomen. He has been nauseated and vomited multiple times. Relates that his last bowel movement was just prior to arrival. Denies any melena or hematochezia. Denies any chest pain, short of breath and breathing. Unable to tolerate any food or fluids at home. Denies any fevers chills or sweats. No sick contacts. No recent travel. Nothing seems to make his symptoms better or worse. No other complaints or concerns. - Related Data Home Medications Medication Instructions Recorded Confirmed clonazePAM [KlonoPIN] 0.5 mg PO Q8H PRN 06/30/14 04/03/19 QUEtiapine [SEROquel] 50 mg PO HS 04/22/18 04/03/19 Previous Rx's Medication Instructions Recorded Dicyclomine [Bentyl] 20 mg PO QID #10 tablet 04/03/19 Ondansetron Odt [Zofran Odt] 4 mg PO Q8HR PRN #6 tab 04/03/19 Allergies Allergy/AdvReac Type Severity Reaction Status Date / Time varenicline [From Chantix] AdvReac Severe Suicidal Verified 04/03/19 22:17 Thoughts Review of Systems ROS Statement: Those systems with pertinent positive or pertinent negative responses have been documented in the HPI. ROS Other: All systems not noted in ROS Statement are negative. Past Medical History Past Medical History: Asthma Additional Past Medical History / Comment(s): back pain, ibs History of Any Multi-Drug Resistant Organisms: None Reported Past Surgical History: Appendectomy Additional Past Surgical History / Comment(s): oral Past Psychological History: Anxiety, Depression Smoking Status: Current every day smoker Past Alcohol Use History: None Reported Past Drug Use History: None Reported General Exam Limitations: no limitations General appearance: alert, obese Head exam: Present: atraumatic, normocephalic Respiratory exam: Present: normal lung sounds bilaterally. Absent: respiratory distress, wheezes, rhonchi Cardiovascular Exam: Present: regular rate, normal rhythm, normal heart sounds GI/Abdominal exam: Present: soft, tenderness (Generalized abdominal tenderness, worse in the right mid and left mid abdomen extending to the bilateral lower quadrants.), normal bowel sounds. Absent: pulsatile mass Extremities exam: Present: normal inspection, full ROM Neurological exam: Present: alert, oriented X3 Psychiatric exam: Present: normal affect, normal mood Skin exam: Present: warm, dry, intact, normal color Course Vital Signs 04/03/19 04/03/19 04/03/19 20:16 21:27 22:22 Temperature 97.5 F L 97.7 F Pulse Rate 75 78 74 Respiratory 18 16 18 Rate Blood Pressure 140/95 149/101 174/98 O2 Sat by Pulse 97 96 98 Oximetry - Reevaluation(s) Time: 22:13 (I a discussed the results of the KUB as well as the lab work with patient.Patient's abdomen reexamined, there is persistent tenderness on exam. Relates he is feeling somewhat at her, however due to the persistent tenderness on exam of complete CT imaging. This will rule out diverticulitis versus other etiology for his pain) Time: 23:40 (I discussed the results of CT imaging with the patient. I advised that he does have increased amount of stool in the hepatic flexure. Discussed that he does have diverticula without diverticulitis. Advised stool softeners. Discussed MiraLAX on a daily basis over the next couple of weeks. Discussed return precautions. Verbalized understanding and agreement) Medical Decision Making - Medical Decision Making 38-year-old obese male that presents to emergency room today for evaluation of abdominal pain. Nausea vomiting, decreased ability to tolerate food and fluids. Patient had moderate tenderness in the abdomen, generalized, and the rate mid abdomen and then bilateral lower quadrants. Patient had KUB completed which revealed no evidence of free air. No evidence of acute pathology. Lab work was normal. Patient's abdomen was reassessed after her medications, he had some persistent diffuse tenderness. 5 days of nausea vomiting and inability to eat. Secondary to persistent symptoms CT imaging abdomen and pelvis was completed to rule out etiology for his pain. Patient and I have discussed resource benefits of CT imaging. He has history of appendectomy. He did have bilateral lower quadrant abdominal tenderness, once rule out diverticulitis, CT imaging completed. CT imaging does not reveal any evidence of diverticulitis, however he does have diverticula. I did review the images myself and there is increased muscle stool at the hepatic flexure. Advised MiraLAX as well as Bentyl and Zofran. Discussed return precautions for verbalized understanding and agreement - Lab Data Result diagrams: 04/03/19 21:25 04/03/19 21:25 Lab Results 04/03/19 04/03/19 04/03/19 Range/Units 21:25 21:25 21:25 WBC 5.8 (3.8-10.6) k/uL RBC 5.33 (4.30-5.90) m/uL Hgb 15.7 (13.0-17.5) gm/dL Hct 47.2 (39.0-53.0) % MCV 88.6 (80.0-100.0) fL MCH 29.4 (25.0-35.0) pg MCHC 33.2 (31.0-37.0) g/dL RDW 12.9 (11.5-15.5) % Plt Count 235 (150-450) k/uL Neutrophils % 60 % Lymphocytes % 27 % Monocytes % 6 % Eosinophils % 2 % Basophils % 3 % Neutrophils # 3.5 (1.3-7.7) k/uL Lymphocytes # 1.6 (1.0-4.8) k/uL Monocytes # 0.4 (0-1.0) k/uL Eosinophils # 0.1 (0-0.7) k/uL Basophils # 0.2 (0-0.2) k/uL Sodium 140 (137-145) mmol/L Potassium 4.2 (3.5-5.1) mmol/L Chloride 104 (98-107) mmol/L Carbon Dioxide 23 (22-30) mmol/L Anion Gap 13 mmol/L BUN 17 (9-20) mg/dL Creatinine 1.02 (0.66-1.25) mg/dL Est GFR (CKD-EPI)AfAm >90 (>60 ml/min/1.73 sqM) Est GFR (CKD-EPI)NonAf >90 (>60 ml/min/1.73 sqM) Glucose 108 H (74-99) mg/dL Calcium 9.7 (8.4-10.2) mg/dL Total Bilirubin 0.8 (0.2-1.3) mg/dL AST 28 (17-59) U/L ALT 28 (4-49) U/L Alkaline Phosphatase 60 (38-126) U/L Total Protein 8.5 H (6.3-8.2) g/dL Albumin 5.0 (3.5-5.0) g/dL Amylase 62 (30-110) U/L Lipase 51 (23-300) U/L Urine Color Yellow Urine Appearance Clear (Clear) Urine pH 5.5 (5.0-8.0) Ur Specific [place] 1.030 (1.001-1.035) Urine Protein 1+ H (Negative) Urine Glucose (UA) Negative (Negative) Urine Ketones Negative (Negative) Urine Blood Negative (Negative) Urine Nitrite Negative (Negative) Urine Bilirubin Negative (Negative) Urine Urobilinogen 2.0 (<2.0) mg/dL Ur Leukocyte Esterase Negative (Negative) Urine RBC <1 (0-5) /hpf Urine WBC 2 (0-5) /hpf Urine Mucus Many H (None) /hpf Disposition Clinical Impression: Abdominal pain of multiple sites, Nausea and vomiting, Constipation Disposition: HOME SELF-CARE Condition: Stable Instructions (If sedation given, give patient instructions): Abdominal Pain (ED), Constipation (ED) Additional Instructions: Rest and fluids. Clear liquid diet and advance as tolerated. MiraLAX daily [id number] for the next 2 weeks until bowel movements regularly. Zofran as needed for nausea sake and tolerated clear liquid diet. Bentyl as needed for abdominal cramping. Return to the emergency room for any worsening or changing symptoms, including but limited to fever greater than 101, nausea and vomiting, inability to tolerate food and fluids, other concerns. Prescriptions: Dicyclomine [Bentyl] 20 mg PO QID #10 tablet Ondansetron Odt [Zofran Odt] 4 mg PO Q8HR PRN #6 tab PRN Reason: Nausea Is patient prescribed a controlled substance at d/c from ED?: No When asked, does pt state using other controlled substances?: No Referrals: Buck Hansen DO [Primary Care Provider] - 1-2 days
[2019-04-04 00:08] VITALS: BP 137/92; PULSE 64; RESP 17; TEMP 97.8
== END 2019-04-04 00:08 | disposition home or self-care (01) ==
LOC: EC 19:30
DX: K59.00 Constipation, unspecified (principal); R11.2 Nausea with vomiting, unspecified; F41.9 Anxiety disorder, unspecified; F32.9 Major depressive disorder, single episode, unspecified; F17.200 Nicotine dependence, unspecified, uncomplicated; Z79.899 Other long term (current) drug therapy; Z88.8 Allergy status to other drugs, medicaments and biological substances; Z90.89 Acquired absence of other organs
CPT/HCPCS: 36415; 80053; 82150; 83690; 85025; 81001; 74018; 74177; 99284; 96374; 96375; 96361 ×2; J2405; J1885; Q9967

== ENCOUNTER 2019-04-07 11:32 | Emergency (ER) | payer MEDICARE, OTHER ==
[2019-04-07 12:06] VITALS: RESP 18
[2019-04-07] MEDS ORDERED: MAGNESIUM CITRATE 296 ML BOTTLE PO ONE (13:17)
--- NOTE | 2019-04-07 13:18 | XR ---
EXAMINATION TYPE: XR KUB , 2 VIEWS DATE OF EXAM ORDERED: 04/07/2019 HISTORY: constipation. COMPARISON: Previous study dated 04/03/2019. FINDINGS: Lung bases are clear. Within the abdomen, the abdominal gas pattern is normal. There is no evidence of obstruction or free air. No unusual calcifications are seen. IMPRESSION: NO ACUTE INTRA-ABDOMINAL ABNORMALITY.
--- NOTE | 2019-04-07 15:09 | ED ---
Abdominal Pain HPI - General Chief Complaint: Abdominal Pain Stated Complaint: Constipation Time Seen by Provider: 04/07/19 12:19 Source: patient, RN notes reviewed, old records reviewed Mode of arrival: ambulatory Limitations: no limitations - History of Present Illness Initial Comments: Patient's a 38-year-old male presenting today for eval for concern for lower abdominal pain. Concern for constipation. He states is been trying to take MiraLAX was unable to have a bowel movement. He does report he has a history of intermittent constipation. He's seen in the emergency department earlier this week, had a full dilation including CAT scan which showed evidence of moderate amount of stool collection. Patient states he feels as well as avulsed told his rectum. He is tried some oral stool softeners no help. He states the passes had have an enema help treat the symptoms. - Related Data Home Medications Medication Instructions Recorded Confirmed clonazePAM [KlonoPIN] 0.5 mg PO Q8H PRN 06/30/14 04/03/19 QUEtiapine [SEROquel] 50 mg PO HS 04/22/18 04/03/19 Previous Rx's Medication Instructions Recorded Dicyclomine [Bentyl] 20 mg PO QID #10 tablet 04/03/19 Ondansetron Odt [Zofran Odt] 4 mg PO Q8HR PRN #6 tab 04/03/19 Allergies Allergy/AdvReac Type Severity Reaction Status Date / Time varenicline [From Chantix] AdvReac Severe Suicidal Verified 04/03/19 22:17 Thoughts Review of Systems ROS Statement: Those systems with pertinent positive or pertinent negative responses have been documented in the HPI. ROS Other: All systems not noted in ROS Statement are negative. Past Medical History Past Medical History: Asthma Additional Past Medical History / Comment(s): back pain, ibs History of Any Multi-Drug Resistant Organisms: None Reported Past Surgical History: Appendectomy Additional Past Surgical History / Comment(s): oral Past Psychological History: Anxiety, Depression Smoking Status: Current every day smoker Past Alcohol Use History: None Reported Past Drug Use History: None Reported General Exam - General Exam Comments Initial Comments: Alert and oriented 2-year-old male. No significant distress. General: Well appearing, well nourished, in no distress. Oriented x 3, normal mood and affect . Ambulating without difficulty. Skin: Good turgor, no rash, unusual bruising or prominent lesions Hair: Normal texture and distribution. HEENT: Head: Normocephalic, atraumatic, no visible or palpable masses, depressions, or scaring. Eyes: Visual acuity intact, conjunctiva clear, sclera non-icteric, EOM intact, PERRL. Ears: EACs clear, TMs translucent & cone of light visualized. hearing intact. Nose: No external lesions, mucosa non-inflamed, septum and turbinates normal Mouth: Mucous membranes moist, no mucosal lesions. Teeth/Gums: No obvious caries or periodontal disease. No gingival inflammation or significant resorption. Pharynx: Mucosa non-inflamed, no tonsillar hypertrophy or exudate Neck: Supple, without lesions, bruits, or adenopathy, thyroid non-enlarged and non-tender Heart: No cardiomegaly or thrills; regular rate and rhythm, no murmur or gallop Lungs: Clear to auscultation and percussion Abdomen: Bowel sounds normal, left lower quadrant tenderness. Back: Spine normal without deformity or tenderness, no CVA tenderness Rectal: Normal sphincter tone, Patient has fecal ball entrance of rectum. Extremities: No amputations or deformities, cyanosis, edema or varicosities, peripheral pulses intact Musculoskeletal: Normal gait and station. No misalignment, asymmetry, crepitation, defects, tenderness, masses, effusions, decreased range of motion, instability, atrophy or abnormal strength or tone in the head, neck, spine, ribs, pelvis or extremities. Neurologic: CN 2-12 normal. Sensation to pain, touch, and proprioception normal. DTRs normal in upper and lower extremities. No pathologic reflexes. Limitations: no limitations Course Vital Signs 04/07/19 04/07/19 12:03 15:35 Temperature 98.6 F 98 F Pulse Rate 72 84 Respiratory 18 18 Rate Blood Pressure 137/92 131/92 O2 Sat by Pulse 97 98 Oximetry Medical Decision Making - Medical Decision Making 2-year-old male no fever presents today for persistent abdominal pain concerning for constipation. Requesting enema. KUB showed a moderate amount of stool in the rectal vault. Patient had an enema. It have some improvement of pain after having a stool. Patient will be discharged home with magnesium citrate as well. Discussed following up with GI specialist and may need to have a colonoscopy. Discussed with Patient had any fevers, or vomiting he would need to return for further evaluation. Patient is agreeable to plan. Disposition Clinical Impression: Constipation Disposition: HOME SELF-CARE Condition: Good Instructions (If sedation given, give patient instructions): Constipation (ED) Additional Instructions: Patient has a follow-up with ear surgery. Use the magnesium citrate home and drink plenty of fluids. Continue MiraLAX after this. Follow-up with PCP. Return to emergency department if any alarming signs or symptoms occur including fever or vomiting. Is patient prescribed a controlled substance at d/c from ED?: No Referrals: Buck Hansen DO [Primary Care Provider] - 1-2 days Alea Ayala DO [Doctor of Osteopathic Medicine] - 1-2 days Time of Disposition: 15:08
[2019-04-07 15:48] VITALS: BP 131/92; PULSE 84; TEMP 98
== END 2019-04-07 15:35 | disposition home or self-care (01) ==
LOC: EC 11:32
DX: K59.00 Constipation, unspecified (principal); F32.9 Major depressive disorder, single episode, unspecified; F41.9 Anxiety disorder, unspecified; F17.200 Nicotine dependence, unspecified, uncomplicated; Z88.8 Allergy status to other drugs, medicaments and biological substances; Z79.899 Other long term (current) drug therapy; Z87.19 Personal history of other diseases of the digestive system; Z90.49 Acquired absence of other specified parts of digestive tract
CPT/HCPCS: 74018; 99284

== ENCOUNTER 2019-09-13 10:13 | Day surgery (SDC) | payer MEDICARE, OTHER ==
[~2019-09-13 10:13] MED LIST: LACTATED RINGERS 1,000 ML IV SCH
[2019-09-13] MEDS ORDERED: LIDOCAINE 1% (10MG/ML) FOR IV START INTRADERMA ONE (11:09)
[2019-09-13] MEDS ORDERED: LIDOCAINE 1% INJ 10MG/ML (20 ML MDV) ONE (11:47)
[2019-09-13] MEDS ORDERED: PROPOFOL 10 MG/ML 20 ML VIAL IV ONE (11:47)
--- NOTE | 2019-09-13 11:50 | P.GSHP ---
History of Present Illness H&P Date: 09/13/19 Chief Complaint: Abdominal pain This a 38-year-old male with complaints of epigastric dull pain. Patient presents today for EGD. Past Medical History Past Medical History: Asthma Additional Past Medical History / Comment(s): back pain, ibs. CHANGE IN BOWEL HABITS History of Any Multi-Drug Resistant Organisms: None Reported Past Surgical History: Appendectomy Additional Past Surgical History / Comment(s): oral SX Past Anesthesia/Blood Transfusion Reactions: No Reported Reaction Smoking Status: Current every day smoker - Past Family History Mother Family Medical History: No Reported History Medications and Allergies Home Medications Medication Instructions Recorded Confirmed Type clonazePAM [KlonoPIN] 0.5 mg PO Q8H PRN 06/30/14 09/12/19 History QUEtiapine [SEROquel] 50 mg PO HS 04/22/18 09/12/19 History Dicyclomine [Bentyl] 20 mg PO QID #10 tablet 04/03/19 09/12/19 Rx Ondansetron Odt [Zofran Odt] 4 mg PO Q8HR PRN #6 tab 04/03/19 09/12/19 Rx Allergies Allergy/AdvReac Type Severity Reaction Status Date / Time varenicline [From Chantix] AdvReac Severe Suicidal Verified 09/13/19 10:51 Thoughts Surgical - Exam Vital Signs Temp Pulse Resp BP Pulse Ox 98.4 F 62 16 114/70 96 09/13/19 11:07 09/13/19 11:07 09/13/19 11:07 09/13/19 11:07 09/13/19 11:07 - General well developed, well nourished, no distress - Eyes PERRL - ENT normal pinna - Neck no masses - Respiratory normal expansion - Cardiovascular Rhythm: regular - Abdomen Abdomen: soft, non tender Assessment and Plan Assessment: Epigastric abdominal pain. We'll perform EGD.
--- NOTE | 2019-09-13 11:55 | P.OP ---
Date of Procedure: 09/13/19 Preoperative Diagnosis: Epigastric dull pain Postoperative Diagnosis: Antral gastritis Procedure(s) Performed: EGD Anesthesia: MAC Surgeon: Chino Longo Pathology: other (Antrum, esophagus) Condition: stable Disposition: PACU Description of Procedure: Patient's placed on the endoscopy table lateral position. He received IV sedation. The gastro-placed oropharynx passed in the esophagus and stomach. Scope then placed through the pylorus. The first and second portion of duodenum appeared normal. Scope summer back the antrum this. Mildly inflamed. A biopsies performed. Scope was then retroflexed meters some appeared normal. There is no significant hiatal hernia. The GE junction was at 47 is. The distal esophagus mildly inflamed a biopsies performed. The proximal esophagus appeared normal. Scope was withdrawn for patient.
[2019-09-14 09:20] VITALS: BMI 34.9
[2019-09-14 10:05] VITALS: BP 111/50; PULSE 51; RESP 18; TEMP 98.4
== END 2019-09-13 12:35 | disposition home or self-care (01) ==
LOC: ORWHC2ENDO 10:13
PROVIDERS: ATTEND Surgery
DX: K29.50 Unspecified chronic gastritis without bleeding (principal); K21.0 Gastro-esophageal reflux disease with esophagitis; K59.00 Constipation, unspecified; D64.9 Anemia, unspecified; G31.84 Mild cognitive impairment of uncertain or unknown etiology; F29 Unspecified psychosis not due to a substance or known physiological condition; F41.1 Generalized anxiety disorder; F32.9 Major depressive disorder, single episode, unspecified; I10 Essential (primary) hypertension; J45.909 Unspecified asthma, uncomplicated; N32.89 Other specified disorders of bladder; R21 Rash and other nonspecific skin eruption; M25.50 Pain in unspecified joint; M54.2 Cervicalgia; M54.6 Pain in thoracic spine; F17.200 Nicotine dependence, unspecified, uncomplicated; Z90.49 Acquired absence of other specified parts of digestive tract; Z88.8 Allergy status to other drugs, medicaments and biological substances; Z79.899 Other long term (current) drug therapy; Z79.51 Long term (current) use of inhaled steroids; Z98.890 Other specified postprocedural states
CPT/HCPCS: 88305; 43239; J2001; J2704

== ENCOUNTER → 2019-10-08 | Outpatient (CLI) | payer MEDICARE, OTHER | END | disposition home or self-care (01) | LOC: LABWHC1 11:08 | PROVIDERS: ATTEND Family Medicine | DX: J02.9 Acute pharyngitis, unspecified (principal) | CPT/HCPCS: U0003; C9803 ==

== ENCOUNTER → 2019-10-18 | Day surgery (SDC) | payer MEDICARE, OTHER ==
[2019-10-16 11:08] VITALS: BMI 34.9
[~2019-10-18] MED LIST changes: +LIDOCAINE 1% (10MG/ML) FOR IV START INTRADERMA ONE; +LIDOCAINE 1% INJ 10MG/ML (20 ML MDV) ONE; +ONDANSETRON 4 MG/2 ML VIAL IVP PRN; +PROPOFOL 10 MG/ML 20 ML VIAL IV ONE
[2019-10-18 09:41] VITALS: RESP 16; TEMP 97.1
--- NOTE | 2019-10-18 10:21 | P.GSHP ---
History of Present Illness H&P Date: 10/18/19 Chief Complaint: Constipation Is a 38-year-old male who presents today for colonoscopy. Patient constipation. She is also had some rectal bleeding. Past Medical History Past Medical History: Asthma Additional Past Medical History / Comment(s): Back pain, IBS, CHANGE IN BOWEL HABITS. History of Any Multi-Drug Resistant Organisms: None Reported Past Surgical History: Appendectomy Additional Past Surgical History / Comment(s): Oral surgery. Past Anesthesia/Blood Transfusion Reactions: No Reported Reaction Past Psychological History: Anxiety, Depression Smoking Status: Vaper Past Alcohol Use History: None Reported Additional Past Alcohol Use History / Comment(s): STOPPED SMOKING 2 YEARS AGO AND NOW VAPS. Past Drug Use History: None Reported - Past Family History Mother Family Medical History: No Reported History Medications and Allergies Home Medications Medication Instructions Recorded Confirmed Type clonazePAM [KlonoPIN] 0.5 mg PO Q8H PRN 06/30/14 10/18/19 History QUEtiapine [SEROquel] 50 mg PO HS 04/22/18 10/16/19 History Dicyclomine [Bentyl] 20 mg PO QID #10 tablet 04/03/19 10/16/19 Rx Ondansetron Odt [Zofran Odt] 4 mg PO Q8HR PRN #6 tab 04/03/19 10/18/19 Rx Allergies Allergy/AdvReac Type Severity Reaction Status Date / Time varenicline [From Chantix] AdvReac Severe Suicidal Verified 10/18/19 09:38 Thoughts Surgical - Exam Vital Signs Temp Pulse Resp BP Pulse Ox 97.1 F L 61 16 143/85 95 10/18/19 09:40 10/18/19 09:40 10/18/19 09:40 10/18/19 09:40 10/18/19 09:40 - General well developed, well nourished, no distress - Eyes PERRL - ENT normal pinna, normal nares - Neck no masses - Respiratory normal expansion - Cardiovascular Rhythm: regular - Abdomen Abdomen: soft, non tender Assessment and Plan Assessment: Constipation, rectal bleeding. We'll perform colonoscopy.
--- NOTE | 2019-10-18 10:32 | P.OP ---
Date of Procedure: 10/18/19 Preoperative Diagnosis: Constipation GI bleed Postoperative Diagnosis: Diverticulosis Internal hemorrhoids Procedure(s) Performed: Colonoscopy Anesthesia: MAC Surgeon: Chino Longo Pathology: none sent Condition: stable Disposition: PACU Description of Procedure: The patient's placed on the endoscopy table in the lateral position. He received IV sedation. Digital rectal exam was performed which revealed internal hemorrhoids. The flexible colonoscope was then placed patient anus passed throughout the entire colon. The ileocecal valve sutures. The cecum, ascending and transverse colon appeared normal. In the descending; there is mild diverticulosis. There is no evidence of diverticulitis. Scope was then brought back into the rectum and this was normal. Scope was withdrawn through the anus internal hemorrhoids are noted. The There is no evidence of any GI bleed. Presumed the patient had bleeding from hemorrhoids and constipation.
[2019-10-18 10:51] VITALS: BP 165/71; PULSE 53
== END ==
LOC: ORWHC2ENDO 09:18
PROVIDERS: ATTEND Surgery
DX: K57.30 Diverticulosis of large intestine without perforation or abscess without bleeding (principal); K64.8 Other hemorrhoids; K58.1 Irritable bowel syndrome with constipation; J45.909 Unspecified asthma, uncomplicated; F41.9 Anxiety disorder, unspecified; F32.9 Major depressive disorder, single episode, unspecified; F17.290 Nicotine dependence, other tobacco product, uncomplicated; Z88.8 Allergy status to other drugs, medicaments and biological substances; Z79.899 Other long term (current) drug therapy; Z90.49 Acquired absence of other specified parts of digestive tract
CPT/HCPCS: 45378; J2001; J2704

== ENCOUNTER 2020-04-15 12:49 | Emergency (ER) | payer MEDICARE, OTHER ==
[2020-04-15 12:55] VITALS: RESP 18; TEMP 97.4
[2020-04-15] MEDS ORDERED: SODIUM CHLORIDE 0.9% 2,000 ML IV STA (12:58)
[2020-04-15] MEDS ORDERED: KETOROLAC 15 MG/ML 1 ML VIAL IVP STA (12:58)
[2020-04-15] MEDS ORDERED: METOCLOPRAMIDE 5 MG/ML 2 ML VIAL IVP STA (12:58)
[2020-04-15] MEDS ORDERED: diphenhydrAMINE 50 MG/ML 1 ML VIAL IVP STA (12:58)
--- NOTE | 2020-04-15 13:00 | ED ---
Abdominal Pain HPI - General Source: patient, EMS, RN notes reviewed Mode of arrival: EMS Limitations: no limitations <Carlito Peñaloza - Last Filed: 04/15/20 12:59> <Deb Owens - Last Filed: 04/15/20 18:46> - General Chief Complaint: Abdominal Pain Stated Complaint: NVD Time Seen by Provider: 04/15/20 12:51 - History of Present Illness Initial Comments: This is a 39-year-old male presents emergency Department with chief complaint of nausea vomiting abdominal discomfort. Patient states is diffuse abdominal discomfort he's also had some diarrhea been ongoing. Patient has a history of IBS. Patient denies any fever states he's had chills and started after he started vomiting. Patient denies chest pain or any significant shortness of breath no sick contacts. Patient had a prior appendectomy. (Carlito Peñaloza) - Related Data Home Medications Medication Instructions Recorded Confirmed clonazePAM [KlonoPIN] 0.5 mg PO Q8H PRN 06/30/14 10/18/19 QUEtiapine [SEROquel] 50 mg PO HS 04/22/18 10/16/19 Previous Rx's Medication Instructions Recorded Dicyclomine [Bentyl] 20 mg PO QID #10 tablet 04/03/19 Ondansetron Odt [Zofran Odt] 4 mg PO Q8HR PRN #6 tab 04/03/19 Allergies Allergy/AdvReac Type Severity Reaction Status Date / Time varenicline [From Chantix] AdvReac Severe Suicidal Verified 04/15/20 12:55 Thoughts Review of Systems ROS Other: All systems not noted in ROS Statement are negative. <Carlito Peñaloza - Last Filed: 04/15/20 12:59> ROS Other: All systems not noted in ROS Statement are negative. <Deb Owens - Last Filed: 04/15/20 18:46> ROS Statement: Those systems with pertinent positive or pertinent negative responses have been documented in the HPI. Past Medical History Past Medical History: Asthma Additional Past Medical History / Comment(s): back pain, ibs. CHANGE IN BOWEL HABITS History of Any Multi-Drug Resistant Organisms: None Reported Past Surgical History: Appendectomy Additional Past Surgical History / Comment(s): oral SX Past Anesthesia/Blood Transfusion Reactions: No Reported Reaction Past Psychological History: Anxiety, Depression Past Alcohol Use History: None Reported Past Drug Use History: None Reported - Past Family History Mother Family Medical History: No Reported History <Carlito Peñaloza - Last Filed: 04/15/20 12:59> General Exam Limitations: no limitations General appearance: alert, in no apparent distress Head exam: Present: atraumatic, normocephalic, normal inspection Eye exam: Present: normal appearance, PERRL, EOMI. Absent: scleral icterus, c onjunctival injection, periorbital swelling Neck exam: Present: normal inspection, full ROM. Absent: tenderness, meningismus, lymphadenopathy Respiratory exam: Present: normal lung sounds bilaterally. Absent: respiratory distress, wheezes, rales, rhonchi, stridor Cardiovascular Exam: Present: regular rate, normal rhythm, normal heart sounds. Absent: systolic murmur, diastolic murmur, rubs, gallop, clicks GI/Abdominal exam: Present: soft, tenderness (Mild diffuse no localized tenderness), normal bowel sounds. Absent: distended, guarding, rebound, rigid Back exam: Absent: CVA tenderness (R), CVA tenderness (L) Neurological exam: Present: alert, oriented X3 Skin exam: Present: warm, dry, intact, normal color. Absent: rash <Carlito Peñaloza - Last Filed: 04/15/20 12:59> Course Vital Signs 04/15/20 04/15/20 04/15/20 12:52 14:05 14:08 Temperature 97.4 F L Pulse Rate 66 68 Respiratory 18 18 Rate Blood Pressure 122/79 158/90 O2 Sat by Pulse 97 100 Oximetry 04/15/20 15:55 Temperature Pulse Rate 69 Respiratory 18 Rate Blood Pressure 149/84 O2 Sat by Pulse 99 Oximetry Medical Decision Making - Lab Data Result diagrams: 04/15/20 13:55 04/15/20 13:55 <Deb Owens - Last Filed: 04/15/20 18:46> - Medical Decision Making Patient is a 39-year-old male with history of IBS presenting with nausea and vomiting that started today. He has diffuse abdominal cramping, no specific area pain. Patient was signed out to me by Carlito Peñaloza at shift change. Labs show a normal white count, lactic acid was at 2.5, most likely reactive. Urine shows 1+ ketones. Patient was given 2 L of fluids, Benadryl, Zofran and Reglan. He has been resting comfortably, no more vomiting. He states he does feel better. He is tolerating ice chips. Patient will be discharged home with some Zofran. I discussed with patient this is most likely a viral gastroenteritis bug or flareup of his IBS. Patient is stable for discharge. Patient is in agreement with this plan of care. Return parameters were discussed with the patient and they verbalized understanding. Case discussed with Dr. Morgan (Deb Owens) - Lab Data Lab Results 04/15/20 04/15/20 04/15/20 Range/Units 13:55 13:55 13:55 WBC 8.4 (3.8-10.6) k/uL RBC 5.02 (4.30-5.90) m/uL Hgb 15.1 (13.0-17.5) gm/dL Hct 43.7 (39.0-53.0) % MCV 87.2 (80.0-100.0) fL MCH 30.1 (25.0-35.0) pg MCHC 34.5 (31.0-37.0) g/dL RDW 13.7 (11.5-15.5) % Plt Count 223 (150-450) k/uL MPV 8.7 Neutrophils % 84 % Lymphocytes % 9 % Monocytes % 4 % Eosinophils % 1 % Basophils % 0 % Neutrophils # 7.1 (1.3-7.7) k/uL Lymphocytes # 0.8 L (1.0-4.8) k/uL Monocytes # 0.3 (0-1.0) k/uL Eosinophils # 0.1 (0-0.7) k/uL Basophils # 0.0 (0-0.2) k/uL Sodium 139 (137-145) mmol/L Potassium 3.5 (3.5-5.1) mmol/L Chloride 100 (98-107) mmol/L Carbon Dioxide 25 (22-30) mmol/L Anion Gap 14 mmol/L BUN 13 (9-20) mg/dL Creatinine 1.01 (0.66-1.25) mg/dL Est GFR (CKD-EPI)AfAm >90 (>60 ml/min/1.73 sqM) Est GFR (CKD-EPI)NonAf >90 (>60 ml/min/1.73 sqM) Glucose 135 H (74-99) mg/dL Lactic Ac Sepsis Rflx Plasma Lactic Acid Kar (0.7-2.0) mmol/L Calcium 9.9 (8.4-10.2) mg/dL Total Bilirubin 0.4 (0.2-1.3) mg/dL AST 41 (17-59) U/L ALT 73 H (4-49) U/L Alkaline Phosphatase 91 (38-126) U/L Total Protein 8.4 H (6.3-8.2) g/dL Albumin 5.0 (3.5-5.0) g/dL Amylase 103 (30-110) U/L Lipase 70 (23-300) U/L Urine Color Yellow Urine Appearance Clear (Clear) Urine pH 7.0 (5.0-8.0) Ur Specific [place] 1.017 (1.001-1.035) Urine Protein Negative (Negative) Urine Glucose (UA) Negative (Negative) Urine Ketones 1+ H (Negative) Urine Blood Negative (Negative) Urine Nitrite Negative (Negative) Urine Bilirubin Negative (Negative) Urine Urobilinogen <2.0 (<2.0) mg/dL Ur Leukocyte Esterase Negative (Negative) 04/15/20 04/15/20 Range/Units 13:55 14:43 WBC (3.8-10.6) k/uL RBC (4.30-5.90) m/uL Hgb (13.0-17.5) gm/dL Hct (39.0-53.0) % MCV (80.0-100.0) fL MCH (25.0-35.0) pg MCHC (31.0-37.0) g/dL RDW (11.5-15.5) % Plt Count (150-450) k/uL MPV Neutrophils % % Lymphocytes % % Monocytes % % Eosinophils % % Basophils % % Neutrophils # (1.3-7.7) k/uL Lymphocytes # (1.0-4.8) k/uL Monocytes # (0-1.0) k/uL Eosinophils # (0-0.7) k/uL Basophils # (0-0.2) k/uL Sodium (137-145) mmol/L Potassium (3.5-5.1) mmol/L Chloride (98-107) mmol/L Carbon Dioxide (22-30) mmol/L Anion Gap mmol/L BUN (9-20) mg/dL Creatinine (0.66-1.25) mg/dL Est GFR (CKD-EPI)AfAm (>60 ml/min/1.73 sqM) Est GFR (CKD-EPI)NonAf (>60 ml/min/1.73 sqM) Glucose (74-99) mg/dL Lactic Ac Sepsis Rflx Y Plasma Lactic Acid Kar 2.5 H* (0.7-2.0) mmol/L Calcium (8.4-10.2) mg/dL Total Bilirubin (0.2-1.3) mg/dL AST (17-59) U/L ALT (4-49) U/L Alkaline Phosphatase (38-126) U/L Total Protein (6.3-8.2) g/dL Albumin (3.5-5.0) g/dL Amylase (30-110) U/L Lipase (23-300) U/L Urine Color Urine Appearance (Clear) Urine pH (5.0-8.0) Ur Specific [place] (1.001-1.035) Urine Protein (Negative) Urine Glucose (UA) (Negative) Urine Ketones (Negative) Urine Blood (Negative) Urine Nitrite (Negative) Urine Bilirubin (Negative) Urine Urobilinogen (<2.0) mg/dL Ur Leukocyte Esterase (Negative) Disposition <Carlito Peñaloza M - Last Filed: 04/15/20 12:59> Is patient prescribed a controlled substance at d/c from ED?: No <Deb Owens - Last Filed: 04/15/20 18:46> Clinical Impression: Nausea & vomiting, Abdominal cramping Disposition: HOME SELF-CARE Condition: Stable Instructions (If sedation given, give patient instructions): Acute Nausea and Vomiting (ED) Additional Instructions: Please return to the Emergency Department if symptoms worsen or any other concerns. May use Zofran for any additional nausea. The tablets is all underneath her tongue. Continue to sip water frequently. Follow-up with your regular doctor. Referrals: Buck Hansen DO [Primary Care Provider] - 1-2 days
[2020-04-15 14:14] LABS: Basophils % (A) 0 %; Eosinophils # (A) 0.1 k/uL (0-0.7); Eosinophils % (A) 1 %; HCT 43.7 % (39.0-53.0); HGB 15.1 gm/dL (13.0-17.5); Lymphocytes # (A) 0.8 k/uL (1.0-4.8); Lymphocytes % (A) 9 %; MCH 30.1 pg (25.0-35.0); MCHC 34.5 g/dL (31.0-37.0); MCV 87.2 fL (80.0-100.0); Mean Platelet Volume 8.7; Monocytes # (A) 0.3 k/uL (0-1.0); Monocytes % (A) 4 %; Neutrophils # (A) 7.1 k/uL (1.3-7.7); Neutrophils % (A) 84 %; Platelet Count 223 k/uL (150-450); RBC 5.02 m/uL (4.30-5.90); RDW 13.7 % (11.5-15.5); WBC 8.4 k/uL (3.8-10.6)
[2020-04-15 14:16] LABS: Appearance,Urine Clear (Clear); Bilirubin,Urine Negative (Negative); Blood,Urine Negative (Negative); Color,Urine Yellow; Glucose,Urine (UA) Negative (Negative); Ketones,Urine 1+ (Negative); Leukocyte Esterase,Urine Negative (Negative); Nitrite,Urine Negative (Negative); Protein,Urine Negative (Negative); Specific Gravity,Urine 1.017 (1.001-1.035); Urobilinogen,Urine <2.0 mg/dL (<2.0)
[2020-04-15 14:27] LABS: ALT 73 U/L (4-49); AST 41 U/L (17-59); African American GFR (CKD) >90 (>60 ml/min/1.73 sqM); Alkaline Phosphatase 91 U/L (38-126); Amylase 103 U/L (30-110); Anion Gap 14 mmol/L; Blood Urea Nitrogen 13 mg/dL (9-20); Calcium 9.9 mg/dL (8.4-10.2); Carbon Dioxide 25 mmol/L (22-30); Chloride 100 mmol/L (98-107); Glucose 135 mg/dL (74-99); Lipase 70 U/L (23-300); Non-African American GFR(CKD) >90 (>60 ml/min/1.73 sqM); Potassium 3.5 mmol/L (3.5-5.1); Sodium 139 mmol/L (137-145); Total Bilirubin 0.4 mg/dL (0.2-1.3); Total Protein 8.4 g/dL (6.3-8.2)
[2020-04-15] MEDS ORDERED: ONDANSETRON 4 MG ODT STARTER PACK 2 TAB BTL PO STA (15:40)
[2020-04-15 15:56] VITALS: BP 149/84; PULSE 69
== END 2020-04-15 15:59 | disposition home or self-care (01) ==
LOC: EC 12:49
DX: R11.2 Nausea with vomiting, unspecified (principal); R10.9 Unspecified abdominal pain; R19.7 Diarrhea, unspecified; F41.9 Anxiety disorder, unspecified; F32.9 Major depressive disorder, single episode, unspecified; Z79.899 Other long term (current) drug therapy; Z88.8 Allergy status to other drugs, medicaments and biological substances
CPT/HCPCS: 36415; 80053; 82150; 83605; 83690; 85025; 81003; 99284; 96374; 96375 ×2; 96361 ×2; J1200; J2765; J1885; S0119

== ENCOUNTER → 2020-05-02 | Outpatient (CLI) | payer MEDICARE, OTHER ==
--- NOTE | 2020-05-02 12:55 | XR ---
EXAMINATION TYPE: XR abdomen complete w decub DATE OF EXAM: 05/02/2020 COMPARISON: Ab2 03/26/2019, CT abdomen pelvis 04/03/2019 HISTORY: Abdominal pain TECHNIQUE: Supine, upright, and left side down lateral decubitus views of the abdomen are obtained. FINDINGS: There is hepatomegaly. There is no evidence for pneumoperitoneum. The bowel gas pattern is unremarkable as there is air throughout nondilated small and large bowel. There are air-fluid levels without bowel distention, surgical clips present in the right lower quadra nt consistent with prior appendectomy. No mass effects are seen. No unusual calcifications. IMPRESSION: Findings could be due to an enteritis or ileus, follow-up as indicated
== END | disposition home or self-care (01) ==
LOC: RADXRMAIN 10:29
PROVIDERS: ATTEND Family Medicine
DX: R10.9 Unspecified abdominal pain (principal)
CPT/HCPCS: 74021

== ENCOUNTER → 2020-06-23 | Outpatient (CLI) | payer MEDICARE, OTHER ==
--- NOTE | 2020-06-23 14:31 | CT ---
EXAMINATION TYPE: CT abdomen pelvis w con DATE OF EXAM: 06/23/2020 COMPARISON: CT abdomen and pelvis April 03, 2019 HISTORY: LUQ pain. CT DLP: 866.50 mGycm, Automated Exposure Control for Dose Reduction was Utilized. CONTRAST: CT scan of the abdomen and pelvis is performed with oral and with IV Contrast, patient injected with 100 mL of Isovue 300. FINDINGS: LUNG BASES: No significant abnormality is appreciated. LIVER/GB: No significant abnormality is appreciated. PANCREAS: No significant abnormality is seen. SPLEEN: No significant abnormality is seen. ADRENALS: No significant abnormality is seen. KIDNEYS: Symmetric cortical medullary uptake and excretion without hydronephrosis seen bilaterally. L eft pelvic phlebolith on axial image 69. BOWEL: Oral contrast reaches level of the proximal transverse colon making evaluation of distal bowel suboptimal. There is no suspicious small or large bowel dilatation. There is mild wall thickening an d underdistended transverse colon. Areas of mild wall thickening in the left and sigmoid colon. Some diverticula on the left and sigmoid colon. No significant surrounding fat stranding. Surgical changes from appendectomy at base of cecum. PROSTATE/SEMINAL VESICLES: No gross abnormality seen. LYMPH NODES: No greater than 1cm abdominal or pelvic lymph nodes are appreciated. OSSEOUS STRUCTURES: Sacralized right L5 segment redemonstrated. OTHER: No significant additional abnormality is seen. IMPRESSION: Possible mild uncomplicated mid to distal acute colitis versus product of poor distention . Correlate clinically otherwise no significant new or acute findings identified.
== END | disposition home or self-care (01) ==
LOC: RADCTMAIN 11:25
PROVIDERS: ATTEND Family Medicine
DX: R10.12 Left upper quadrant pain (principal)
CPT/HCPCS: 74177; Q9967

== ENCOUNTER 2020-06-24 16:42 | Emergency (ER) | payer MEDICARE, OTHER ==
[2020-06-24 16:48] VITALS: BP 142/80; PULSE 80; RESP 16; TEMP 97.9
[2020-06-24] MEDS ORDERED: MORPHINE SULFATE 4 MG/ML SYRINGE IV STA (18:08)
[2020-06-24] MEDS ORDERED: SODIUM CHLORIDE 0.9% 1,000 ML IV STA (18:08)
--- NOTE | 2020-06-24 18:08 | ED ---
Abdominal Pain HPI - General Chief Complaint: Abdominal Pain Stated Complaint: Abd Pain Time Seen by Provider: 06/24/20 17:48 Source: patient Mode of arrival: ambulatory Limitations: no limitations - History of Present Illness Initial Comments: Dictation was produced using [employer] dictation software. please excuse any grammatical, word or spelling errors. This patient was cared for during a federal and state declared state of emergency secondary to Covid 19 Chief Complaint: 39-year-old male presents with abdominal pain. History of Present Illness: 19-year-old male who states he has past medical history of irritable bowel disease. States her last several months he's been battling chronic abdominal pain. States is here because he is having acute abdominal pain to left lower quadrant and right upper quadrant. He states he noticed a bulge in his abdomen. He was seen by his primary care physician yesterday who he states ordered an MRI. He denies skin results for that. Denies any constitutional symptoms. Denies vomiting or diarrhea. States he has had some bloody stools intermittently in the last several weeks. The ROS documented in this emergency department record has been reviewed and confirmed by me. Those systems with pertinent positive or negative responses have been documented in the HPI. All other systems are other negative and/or noncontributory. PHYSICAL EXAM: General Impression: Alert and oriented x3, not in acute distress HEENT: Normocephalic atraumatic, extra-ocular movements intact, pupils equal and reactive to light bilaterally, mucous membranes moist. Cardiovascular: Heart regular rate and rhythm Chest: Able to complete full sentences, no retractions, no tachypnea Abdomen: abdomen soft, voluntary guarding, palpatory tenderness in the upper quadrants, tympanitic to percussion, non-distended, no organomegaly Musculoskeletal: Pulses present and equal in all extremities, no peripheral e geraldine Motor: no focal deficits noted Neurological: CN II-XII grossly intact, no focal motor or sensory deficits noted Skin: Intact with no visualized rashes Psych: Normal affect and mood ED course: 39-year-old male presents with acute on chronic abdominal pain. Vital signs upon arrival are within acceptable limits. Chart review was performed. Patient has CT abdomen and pelvis performed yesterday showing possible mild uncomplicated mid to distal acute colitis versus poor distention. EKG interpretation: Ventricular rate 52, sinus bradycardia,. Interval 152, QRS 96, QTC 412. No [place] prolongation, no QTC prolongation, no ST or T-wave changes noted. EKG compared to fever 2018 showing no changes. Overall, this EKG is unremarkable Laboratory evaluation obtained. CBC, metabolic panel is unremarkable. Abdominal x-ray is unremarkable. Patient related bedside to be in stable medical condition. He is given outpatient referral to gastroenterology. - Related Data Home Medications Medication Instructions Recorded Confirmed clonazePAM [KlonoPIN] 0.5 mg PO Q8H PRN 06/30/14 10/18/19 QUEtiapine [SEROquel] 50 mg PO HS 04/22/18 10/16/19 Previous Rx's Medication Instructions Recorded Dicyclomine [Bentyl] 20 mg PO QID #10 tablet 04/03/19 Ondansetron Odt [Zofran Odt] 4 mg PO Q8HR PRN #6 tab 04/03/19 Allergies Allergy/AdvReac Type Severity Reaction Status Date / Time varenicline [From Chantix] AdvReac Severe Suicidal Verified 04/15/20 12:55 Thoughts Review of Systems ROS Statement: Those systems with pertinent positive or pertinent negative responses have been documented in the HPI. ROS Other: All systems not noted in ROS Statement are negative. Past Medical History Past Medical History: Asthma Additional Past Medical History / Comment(s): back pain, ibs. CHANGE IN BOWEL HABITS History of Any Multi-Drug Resistant Organisms: None Reported Past Surgical History: Appendectomy Additional Past Surgical History / Comment(s): oral SX Past Anesthesia/Blood Transfusion Reactions: No Reported Reaction Past Psychological History: Anxiety, Depression Smoking Status: Current every day smoker, Vaper Past Alcohol Use History: None Reported Past Drug Use History: None Reported, Marijuana - Past Family History Mother Family Medical History: No Reported History General Exam Limitations: no limitations Course Vital Signs 06/24/20 16:44 Temperature 97.9 F Pulse Rate 80 Respiratory 16 Rate Blood Pressure 142/80 O2 Sat by Pulse 98 Oximetry Medical Decision Making - Lab Data Result diagrams: 06/24/20 18:10 06/24/20 18:10 Lab Results 06/24/20 06/24/20 06/24/20 Range/Units 18:10 18:10 18:10 WBC 6.2 (3.8-10.6) k/uL RBC 4.83 (4.30-5.90) m/uL Hgb 14.7 (13.0-17.5) gm/dL Hct 42.3 (39.0-53.0) % MCV 87.6 (80.0-100.0) fL MCH 30.4 (25.0-35.0) pg MCHC 34.7 (31.0-37.0) g/dL RDW 13.1 (11.5-15.5) % Plt Count 238 (150-450) k/uL MPV 8.8 Neutrophils % 71 % Lymphocytes % 18 % Monocytes % 7 % Eosinophils % 1 % Basophils % 1 % Neutrophils # 4.4 (1.3-7.7) k/uL Lymphocytes # 1.1 (1.0-4.8) k/uL Monocytes # 0.4 (0-1.0) k/uL Eosinophils # 0.1 (0-0.7) k/uL Basophils # 0.0 (0-0.2) k/uL Sodium 136 L (137-145) mmol/L Potassium 3.9 (3.5-5.1) mmol/L Chloride 100 (98-107) mmol/L Carbon Dioxide 24 (22-30) mmol/L Anion Gap 12 mmol/L BUN 8 L (9-20) mg/dL Creatinine 0.95 (0.66-1.25) mg/dL Est GFR (CKD-EPI)AfAm >90 (>60 ml/min/1.73 sqM) Est GFR (CKD-EPI)NonAf >90 (>60 ml/min/1.73 sqM) Glucose 102 H (74-99) mg/dL Plasma Lactic Acid Kar 0.9 (0.7-2.0) mmol/L Calcium 10.0 (8.4-10.2) mg/dL Total Bilirubin 0.8 (0.2-1.3) mg/dL AST 22 (17-59) U/L ALT 23 (4-49) U/L Alkaline Phosphatase 81 (38-126) U/L Total Protein 8.0 (6.3-8.2) g/dL Albumin 4.9 (3.5-5.0) g/dL Lipase 25 (23-300) U/L Disposition Clinical Impression: Abdominal pain Disposition: HOME SELF-CARE Condition: Good Instructions (If sedation given, give patient instructions): Abdominal Pain (ED) Is patient prescribed a controlled substance at d/c from ED?: No Referrals: Masood Mary MD [STAFF PHYSICIAN] - 1-2 days Time of Disposition: 20:10
[2020-06-24 18:20] LABS: Basophils % (A) 1 %; Eosinophils # (A) 0.1 k/uL (0-0.7); Eosinophils % (A) 1 %; HCT 42.3 % (39.0-53.0); HGB 14.7 gm/dL (13.0-17.5); Lymphocytes # (A) 1.1 k/uL (1.0-4.8); Lymphocytes % (A) 18 %; MCH 30.4 pg (25.0-35.0); MCHC 34.7 g/dL (31.0-37.0); MCV 87.6 fL (80.0-100.0); Mean Platelet Volume 8.8; Monocytes # (A) 0.4 k/uL (0-1.0); Monocytes % (A) 7 %; Neutrophils # (A) 4.4 k/uL (1.3-7.7); Neutrophils % (A) 71 %; Platelet Count 238 k/uL (150-450); RBC 4.83 m/uL (4.30-5.90); RDW 13.1 % (11.5-15.5); WBC 6.2 k/uL (3.8-10.6)
[2020-06-24 18:31] LABS: ALT 23 U/L (4-49); AST 22 U/L (17-59); African American GFR (CKD) >90 (>60 ml/min/1.73 sqM); Albumin 4.9 g/dL (3.5-5.0); Alkaline Phosphatase 81 U/L (38-126); Anion Gap 12 mmol/L; Blood Urea Nitrogen 8 mg/dL (9-20); Carbon Dioxide 24 mmol/L (22-30); Chloride 100 mmol/L (98-107); Glucose 102 mg/dL (74-99); Lipase 25 U/L (23-300); Non-African American GFR(CKD) >90 (>60 ml/min/1.73 sqM); Potassium 3.9 mmol/L (3.5-5.1); Sodium 136 mmol/L (137-145); Total Bilirubin 0.8 mg/dL (0.2-1.3)
--- NOTE | 2020-06-24 20:03 | XR ---
EXAMINATION TYPE: XR abdomen 1V DATE OF EXAM: 06/24/2020 COMPARISON: NONE HISTORY: Pain TECHNIQUE: Single supine KUB image of the abdomen is obtained FINDINGS: Retained contrast from yesterday's CT scan. Small bowel demonstrates no evidence for dilatation or air fluid levels. Gas and fecal material is seen in non-distended colon. No convincing evidence for pneumoperitoneum. No unusual calcifications. The lung bases are clear. The osseous structures are intact. IMPRESSION: 1. Overall nonobstructive bowel gas pattern.
== END 2020-06-24 20:24 | disposition home or self-care (01) ==
LOC: EC 16:42
DX: R10.32 Left lower quadrant pain (principal); R10.11 Right upper quadrant pain; G89.29 Other chronic pain; R00.1 Bradycardia, unspecified; F41.9 Anxiety disorder, unspecified; F32.9 Major depressive disorder, single episode, unspecified; F17.200 Nicotine dependence, unspecified, uncomplicated; Z79.899 Other long term (current) drug therapy; Z88.8 Allergy status to other drugs, medicaments and biological substances
CPT/HCPCS: 36415; 93005; 80053; 83605; 83690; 85025; 74018; 99284; 96374; 96361 ×2; J2270

== ENCOUNTER 2020-06-29 18:18 | Emergency (ER) | payer MEDICARE, OTHER ==
[2020-06-29] MEDS ORDERED: SODIUM CHLORIDE 0.9% 1,000 ML IV STA (18:47)
[2020-06-29] MEDS ORDERED: DICYCLOMINE 10 MG/ML 2 ML AMP IM STA (18:58)
[2020-06-29 19:03] LABS: Basophils # (A) 0.1 k/uL (0-0.2); Basophils % (A) 0 %; Eosinophils # (A) 0.1 k/uL (0-0.7); Eosinophils % (A) 1 %; HCT 45.3 % (39.0-53.0); HGB 15.7 gm/dL (13.0-17.5); Lymphocytes # (A) 1.1 k/uL (1.0-4.8); Lymphocytes % (A) 7 %; MCH 30.7 pg (25.0-35.0); MCHC 34.6 g/dL (31.0-37.0); MCV 88.7 fL (80.0-100.0); Mean Platelet Volume 9.2; Monocytes # (A) 0.7 k/uL (0-1.0); Monocytes % (A) 5 %; Neutrophils # (A) 13.7 k/uL (1.3-7.7); Neutrophils % (A) 87 %; Platelet Count 233 k/uL (150-450); RDW 12.9 % (11.5-15.5); WBC 15.8 k/uL (3.8-10.6)
[2020-06-29 19:06] LABS: Appearance,Urine Clear (Clear); Bacteria,Urine Rare /hpf; Bilirubin,Urine Negative (Negative); Blood,Urine Negative (Negative); Color,Urine Yellow; Glucose,Urine (UA) Negative (Negative); Hyaline Casts,Urine 3 /lpf (0-2); Ketones,Urine 3+ (Negative); Leukocyte Esterase,Urine Trace (Negative); Mucus,Urine Few /hpf; Nitrite,Urine Negative (Negative); Protein,Urine Trace (Negative); RBC,Urine <1 /hpf (0-5); Specific Gravity,Urine 1.029 (1.001-1.035); Urobilinogen,Urine <2.0 mg/dL (<2.0); WBC,Urine 4 /hpf (0-5)
[2020-06-29 19:13] LABS: ALT 19 U/L (4-49); AST 24 U/L (17-59); African American GFR (CKD) >90 (>60 ml/min/1.73 sqM); Albumin 4.6 g/dL (3.5-5.0); Alkaline Phosphatase 80 U/L (38-126); Anion Gap 13 mmol/L; Blood Urea Nitrogen 8 mg/dL (9-20); Calcium 9.5 mg/dL (8.4-10.2); Carbon Dioxide 23 mmol/L (22-30); Chloride 99 mmol/L (98-107); Glucose 112 mg/dL (74-99); Lipase 34 U/L (23-300); Non-African American GFR(CKD) >90 (>60 ml/min/1.73 sqM); Potassium 4.1 mmol/L (3.5-5.1); Sodium 135 mmol/L (137-145); Total Bilirubin 0.6 mg/dL (0.2-1.3); Total Protein 7.4 g/dL (6.3-8.2)
[2020-06-29] MEDS ORDERED: HALOPERIDOL LACTATE 5 MG/ML 1 ML VIAL IVP STA (19:15)
--- NOTE | 2020-06-29 19:15 | ED ---
General Adult HPI - General Chief complaint: Nausea/Vomiting/Diarrhea Stated complaint: Revisit Nausea, Vomiting Time Seen by Provider: 06/29/20 18:24 Source: patient, EMS Mode of arrival: EMS Limitations: no limitations - History of Present Illness Initial comments: Roscoe is a 39yo M who presents to the ER today via EMS for evaluation of abdominal pain. Patient states that he had been constipated all week, he states that he was taking laxatives and eating plenty of healthy foods. Patient states that he was able to have a bowel movement this morning but also developed nausea, vomiting and diffuse abdominal pain. Patient has been seen for this 2x i n the past week, he was advised to follow up with GI but has not yet made appointment for GI appointment. - Related Data Home Medications Medication Instructions Recorded Confirmed clonazePAM [KlonoPIN] 0.5 mg PO BID 06/30/14 06/29/20 Docusate [Colace] 100 mg PO BID PRN 06/29/20 06/29/20 QUEtiapine [SEROquel] 200 mg PO HS 06/29/20 06/29/20 Allergies Allergy/AdvReac Type Severity Reaction Status Date / Time varenicline [From Chantix] AdvReac Severe Suicidal Verified 06/29/20 19:25 Thoughts Review of Systems ROS Statement: Those systems with pertinent positive or pertinent negative responses have been documented in the HPI. ROS Other: All systems not noted in ROS Statement are negative. Past Medical History Past Medical History: Asthma Additional Past Medical History / Comment(s): back pain, ibs. CHANGE IN BOWEL HABITS History of Any Multi-Drug Resistant Organisms: None Reported Past Surgical History: Appendectomy Additional Past Surgical History / Comment(s): oral SX Past Anesthesia/Blood Transfusion Reactions: No Reported Reaction Past Psychological History: Anxiety, Depression Smoking Status: Current every day smoker, Vaper Past Alcohol Use History: None Reported Past Drug Use History: None Reported, Marijuana - Past Family History Mother Family Medical History: No Reported History General Exam - General Exam Comments Initial Comments: Physical Exam GENERAL: Patient is well-developed and well-nourished. Patient is nontoxic and well-hydrated and is in no distress. HENT: Normocephalic, Atraumatic. EYES: PERRL, EOMI PULMONARY: Unlabored respirations. CARDIOVASCULAR: RRR Warm and well perfused extremities ABDOMEN: Soft, non-distended Non-peritoneal SKIN: No rashes or bruising : Deferred NEUROLOGIC: Alert and oriented Normal speech Normal gait MUSCULOSKELETAL: Moving all extremities with no apparent injury PSYCHIATRIC: No SI/HI Limitations: no limitations Course Vital Signs 06/29/20 06/29/20 06/29/20 18:20 19:23 20:26 Temperature 97.6 F Pulse Rate 72 54 L 59 L Respiratory 24 18 18 Rate Blood Pressure 157/86 144/91 161/90 O2 Sat by Pulse 100 100 100 Oximetry Medical Decision Making - Medical Decision Making The patient was seen and evaluated history is obtained from the patient and review of medical record 39-year-old marijuana smoker with recurrent episodes of abdominal pain with nausea Patient was screaming from the room and discomfort Given patient's history and negative workup in the recent past they suspect he suffered from hyperemesis due to cannabis use Patient was treated with Haldol and had resolution of his abdominal discomfort and nausea Patient states he is ready to go home I discussed with the patient that he needs to abstain from marijuana use for 6 weeks to prevent symptoms - Lab Data Result diagrams: 06/29/20 18:50 06/29/20 18:50 Lab Results 06/29/20 06/29/20 06/29/20 Range/Units 18:50 18:50 18:50 WBC 15.8 H (3.8-10.6) k/uL RBC 5.10 (4.30-5.90) m/uL Hgb 15.7 (13.0-17.5) gm/dL Hct 45.3 (39.0-53.0) % MCV 88.7 (80.0-100.0) fL MCH 30.7 (25.0-35.0) pg MCHC 34.6 (31.0-37.0) g/dL RDW 12.9 (11.5-15.5) % Plt Count 233 (150-450) k/uL MPV 9.2 Neutrophils % 87 % Lymphocytes % 7 % Monocytes % 5 % Eosinophils % 1 % Basophils % 0 % Neutrophils # 13.7 H (1.3-7.7) k/uL Lymphocytes # 1.1 (1.0-4.8) k/uL Monocytes # 0.7 (0-1.0) k/uL Eosinophils # 0.1 (0-0.7) k/uL Basophils # 0.1 (0-0.2) k/uL Sodium 135 L (137-145) mmol/L Potassium 4.1 (3.5-5.1) mmol/L Chloride 99 (98-107) mmol/L Carbon Dioxide 23 (22-30) mmol/L Anion Gap 13 mmol/L BUN 8 L (9-20) mg/dL Creatinine 0.93 (0.66-1.25) mg/dL Est GFR (CKD-EPI)AfAm >90 (>60 ml/min/1.73 sqM) Est GFR (CKD-EPI)NonAf >90 (>60 ml/min/1.73 sqM) Glucose 112 H (74-99) mg/dL Calcium 9.5 (8.4-10.2) mg/dL Total Bilirubin 0.6 (0.2-1.3) mg/dL AST 24 (17-59) U/L ALT 19 (4-49) U/L Alkaline Phosphatase 80 (38-126) U/L Total Protein 7.4 (6.3-8.2) g/dL Albumin 4.6 (3.5-5.0) g/dL Lipase 34 (23-300) U/L Urine Color Yellow Urine Appearance Clear (Clear) Urine pH 8.0 (5.0-8.0) Ur Specific [place] 1.029 (1.001-1.035) Urine Protein Trace H (Negative) Urine Glucose (UA) Negative (Negative) Urine Ketones 3+ H (Negative) Urine Blood Negative (Negative) Urine Nitrite Negative (Negative) Urine Bilirubin Negative (Negative) Urine Urobilinogen <2.0 (<2.0) mg/dL Ur Leukocyte Esterase Trace H (Negative) Urine RBC <1 (0-5) /hpf Urine WBC 4 (0-5) /hpf Urine Bacteria Rare H (None) /hpf Hyaline Casts 3 H (0-2) /lpf Urine Mucus Few H (None) /hpf Disposition Clinical Impression: Cannabinoid hyperemesis syndrome Disposition: HOME SELF-CARE Condition: Stable Instructions (If sedation given, give patient instructions): Acute Nausea and Vomiting (ED) Is patient prescribed a controlled substance at d/c from ED?: No Referrals: Buck Hansen DO [Primary Care Provider] - 1-2 days
[2020-06-29 19:24] VITALS: RESP 18
[2020-06-29 20:29] VITALS: BP 161/90; PULSE 59; TEMP 97.6
== END 2020-06-29 20:30 | disposition home or self-care (01) ==
LOC: EC 18:18
DX: F12.90 Cannabis use, unspecified, uncomplicated (principal); R11.10 Vomiting, unspecified; F17.200 Nicotine dependence, unspecified, uncomplicated; J45.909 Unspecified asthma, uncomplicated; Z79.899 Other long term (current) drug therapy
CPT/HCPCS: 36415; 80053; 83690; 85025; 81001; 99284; 96374; 96372; 96361; J0500; J1630

== ENCOUNTER → 2020-08-06 | Outpatient (CLI) | payer MEDICARE ==
--- NOTE | 2020-08-06 13:37 | FL ---
EXAMINATION TYPE: FL UGI w small bowel DATE OF EXAM: 08/06/2020 COMPARISON: CT 06/23/2020 HISTORY: Left upper quadrant pain, vomiting TECHNIQUE: A double contrast UGI study is performed with small bowel follow through. FINDINGS: Cad Technician image of the abdomen shows no gross abnormality. The esophagus shows normal motility and emptying into the stomach. No evidence of hiatal hernia or s tricture noted. The stomach shows normal distensibility, peristalsis, and mucosal folds. No evidence of any mass or ulcer disease. No significant esophageal reflux was seen during real time performance of this study. The duodenal bulb and sweep are unremarkable. The small bowel study shows flocculation or segmentation of the barium column. Small bowel folds appe ar somewhat distended in the jejunum and 75 minutes IMPRESSION: Correlate for celiac disease.
== END | disposition home or self-care (01) ==
LOC: RADFLMAIN 08:55
PROVIDERS: ATTEND Internal Medicine Gastroenterology
DX: R10.12 Left upper quadrant pain (principal); R11.10 Vomiting, unspecified
CPT/HCPCS: 74240; 74248

== ENCOUNTER → 2020-08-07 | Outpatient (CLI) | payer MEDICARE ==
[2020-08-07 17:05] LABS: Gliadin AB IgA, Deaminated POSITIVE (NEGATIVE); Gliadin AB IgG, Deaminated NEGATIVE (NEGATIVE)
== END | disposition home or self-care (01) ==
LOC: LABWHC1 09:42
PROVIDERS: ATTEND Physician Assistant
DX: R19.4 Change in bowel habit (principal)
CPT/HCPCS: 36415; 83516; 85652; 86140

== ENCOUNTER 2020-09-16 09:11 | Day surgery (SDC) | payer MEDICARE ==
[2020-09-15 09:25] VITALS: BMI 27.8
[~2020-09-16 09:11] MED LIST changes: -LIDOCAINE 1% (10MG/ML) FOR IV START INTRADERMA ONE; +LIDOCAINE 1% (10MG/ML) FOR IV START INTRADERMA PRN; -LIDOCAINE 1% INJ 10MG/ML (20 ML MDV) ONE; -ONDANSETRON 4 MG/2 ML VIAL IVP PRN; -PROPOFOL 10 MG/ML 20 ML VIAL IV ONE
[2020-09-16] MEDS ORDERED: PROPOFOL 10 MG/ML 20 ML VIAL IV ONE (11:04)
--- NOTE | 2020-09-16 11:40 | P.PCN ---
Date of Procedure: 09/16/20 Description of Procedure: BRIEF HISTORY: Patient is a 39-year-old male presenting for outpatient esophagogastroduodenoscopy for evaluation of autoantibody screening for celiac disease positive. The patient had laboratory evaluation with positive bleeding in antibody. Normal ESR and CRP. He previously has small bowel series with findings suggestive of a distended jejunum with recommendation to correlate with celiac disease. Currently the patient takes linzess and MiraLAX for bowel regimen. PROCEDURE PERFORMED: Esophagogastroduodenoscopy with biopsy. PREOPERATIVE DIAGNOSIS: Autoantibody screening for celiac disease positive, positive bleed in antibody, abnormal imaging abdomen. ESTIMATED BLOOD LOSS: Minimal. IV sedation per anesthesia. PROCEDURE: After informed consent was obtained, the patient was brought into the endoscopy unit. IV sedation was administered by Anesthesia under continuous monitoring. Initially the Olympus GIF-190 video endoscope was inserted into the mouth. Esophagus intubated without any difficulty. It was gradually advanced into the stomach and duodenum and carefully examined. The bulb and the second, third and fourth part of the duodenum appeared normal, with normal appearing proximal jejunum. Multiple biopsies taken of the duodenum to rule out celiac sprue. The scope at this time was withdrawn to the stomach, adequately insufflated with air, and upon careful examination, mucosa of the antrum, body, cardia and the fundus appeared normal, except for some mild scattered erythema suggestive of mild gastritis biopsies taken. The scope was then withdrawn into the esophagus. The GE junction was located at 39 cm from the incisors. The esophagus appeared normal. There were no erosions or ulcerations seen and the patient tolerated the procedure well. IMPRESSION: 1. Mild gastritis. 2. Disease of the antrum and body and multiple biopsies of the duodenum to rule out celiac sprue. RECOMMENDATIONS: The findings of this examination were discussed with the patient and his family. Okay to resume diet. Okay to resume medications. Continue current bowel regimen. Follow-up in the GI clinic as scheduled for results of biopsies.
[2020-09-16 11:46] VITALS: RESP 16
[2020-09-16 12:14] VITALS: BP 131/71; PULSE 65
== END 2020-09-16 12:15 | disposition home or self-care (01) ==
LOC: ORWHC2ENDO 09:11
PROVIDERS: ATTEND Internal Medicine
DX: K29.50 Unspecified chronic gastritis without bleeding (principal); R76.0 Raised antibody titer; Z90.89 Acquired absence of other organs; Z98.890 Other specified postprocedural states; I10 Essential (primary) hypertension; F17.290 Nicotine dependence, other tobacco product, uncomplicated; F41.9 Anxiety disorder, unspecified; F32.9 Major depressive disorder, single episode, unspecified; Z79.899 Other long term (current) drug therapy; Z88.8 Allergy status to other drugs, medicaments and biological substances
CPT/HCPCS: 88305; 43239; J2704

== ENCOUNTER → 2021-01-02 | Outpatient (CLI) | payer MEDICARE ==
[2021-01-02 12:59] LABS: Chol/HDL Ratio 7.7 Ratio; HDL Cholesterol 36.5 mg/dL (40.00-60.00); LDL Cholesterol,Calculated 221.9 mg/dL (0.0-131.0); T4, Free (Free Thyroxine) 1.4 ng/dL (0.800-1.800); VLDL Calculation 22.6 mg/dL (5.00-40.00)
== END | disposition home or self-care (01) ==
LOC: LABWHC1 08:11
PROVIDERS: ATTEND Psychiatry & Neurology Psychiatry
DX: Z79.899 Other long term (current) drug therapy (principal)
CPT/HCPCS: 36415; 80061; 82947; 83036; 84439; 84443

== ENCOUNTER → 2021-03-31 | Outpatient (CLI) | payer MEDICARE ==
[2021-03-31 15:03] LABS: Basophils # (A) 0.05 X 10*3/uL (0.00-0.10); Basophils % (A) 1.3 %; Eosinophils # (A) 0.31 X 10*3/uL (0.04-0.35); HCT 41.4 % (39.6-50.0); HGB 13.5 g/dL (13.0-17.0); Lymphocytes # (A) 1.18 X 10*3/uL (0.90-5.00); Lymphocytes % (A) 30.4 %; MCH 30.3 pg (27.0-32.0); MCHC 32.6 g/dL (32.0-37.0); MCV 92.8 fL (80.0-97.0); Mean Platelet Volume 11.9 fL (9.5-12.2); Monocytes # (A) 0.31 X 10*3/uL (0.20-1.00); Neutrophils # (A) 2.02 X 10*3/uL (1.80-7.70); Platelet Count 190 X 10*3/uL (140-440); RBC 4.46 X 10*6/uL (4.40-5.60); RDW 13.9 % (11.5-14.5); WBC 3.88 X 10*3/uL (4.50-10.00)
[2021-03-31 19:01] LABS: African American GFR (CKD) 127.7 (60.0-200.0); Albumin 4.7 g/dL (3.8-4.9); Albumin/Globulin Ratio 1.88 (1.60-3.17); BUN/Creat Ratio 17.88 Ratio (12.00-20.00); Blood Urea Nitrogen 14.3 mg/dL (9.0-27.0); Calcium 9.2 mg/dL (8.7-10.3); Globulin 2.5 g/dL (1.6-3.3); Non-African American GFR(CKD) 110.2 (60.0-200.0); Potassium 3.5 mmol/L (3.5-5.5); Total Bilirubin 0.6 mg/dL (0.30-1.20); Total Protein 7.2 g/dL (6.2-8.2)
[2021-04-02 05:05] LABS: Gliadin AB IgA, Deaminated NEGATIVE (NEGATIVE); Gliadin AB IgA, Unit 13.2 U/mL; Gliadin AB IgG, Deaminated NEGATIVE (NEGATIVE)
== END | disposition home or self-care (01) ==
LOC: LABWHC1 09:10
PROVIDERS: ATTEND Nurse Practitioner Family
DX: K90.0 Celiac disease (principal)
CPT/HCPCS: 36415; 80053; 83516; 85025

== ENCOUNTER 2022-07-30 16:26 | Emergency (ER) | payer MEDICARE ==
[2022-07-30 16:31] VITALS: RESP 18; TEMP 97.4
[2022-07-30] MEDS ORDERED: ONDANSETRON 4 MG/2 ML VIAL IVP STA (18:39)
[2022-07-30] MEDS ORDERED: MORPHINE SULFATE 4 MG/ML SYRINGE IVP STA (18:39)
[2022-07-30] MEDS ORDERED: PANTOPRAZOLE 40 MG/10 ML VIAL IVP STA (18:39)
[2022-07-30] MEDS ORDERED: SODIUM CHLORIDE 0.9% 1,000 ML IV STA ×2 (18:39→20:23)
[2022-07-30 19:10] LABS: Basophils % (A) 0 %; Eosinophils # (A) 0.1 k/uL (0-0.7); Eosinophils % (A) 0 %; HCT 45.9 % (39.0-53.0); HGB 15.5 gm/dL (13.0-17.5); Lymphocytes # (A) 0.6 k/uL (1.0-4.8); Lymphocytes % (A) 5 %; MCH 31.1 pg (25.0-35.0); MCHC 33.9 g/dL (31.0-37.0); MCV 91.7 fL (80.0-100.0); Mean Platelet Volume 10.3; Monocytes # (A) 0.5 k/uL (0-1.0); Monocytes % (A) 4 %; Neutrophils # (A) 11.4 k/uL (1.3-7.7); Neutrophils % (A) 90 %; Platelet Count 224 k/uL (150-450); RDW 13.1 % (11.5-15.5); WBC 12.7 k/uL (3.8-10.6)
[2022-07-30 19:31] LABS: AST 44 U/L (17-59); African American GFR (CKD) >90 (>60 ml/min/1.73 sqM); Alkaline Phosphatase 56 U/L (38-126); Amylase 65 U/L (30-110); Anion Gap 15 mmol/L; Blood Urea Nitrogen 15 mg/dL (9-20); Calcium 9.9 mg/dL (8.4-10.2); Carbon Dioxide 23 mmol/L (22-30); Chloride 102 mmol/L (98-107); Lipase 14 U/L (23-300); Non-African American GFR(CKD) >90 (>60 ml/min/1.73 sqM); Potassium 4.7 mmol/L (3.5-5.1); Sodium 140 mmol/L (137-145); Total Bilirubin 0.9 mg/dL (0.2-1.3); Total Protein 8.5 g/dL (6.3-8.2)
[2022-07-30 19:38] LABS: ALT 63 U/L (4-49)
[2022-07-30 19:48] LABS: Partial Thromboplastin Time 20.3 sec (22.0-30.0); Prothrombin Time 10.9 sec (9.0-12.0)
[2022-07-30 20:01] LABS: Glucose 150 mg/dL (74-99)
--- NOTE | 2022-07-30 21:10 | CT ---
EXAMINATION TYPE: CT abdomen pelvis w con DATE OF EXAM: 07/30/2022 COMPARISON: 06/23/2020 INDICATION: Nausea, vomiting. Celiac disease. DLP: 1402.6 mGycm, Automated exposure control for dose reduction was used. CONTRAST: 100cc mL of Isovue 300. Study performed without Oral Contrast TECHNIQUE: Axial images were obtained from above the diaphragm to the pubic rami in the axial plane a t 5 mm thick sections. Reconstructed images are reviewed on the computer in the coronal plane. FINDINGS: Limited CT sections are obtained the lung bases. The lung bases are clear. CT ABDOMEN: Liver: Density through the liver is diminished compared to the spleen compatible with moderate fatty infiltration of liver. No discrete masses are evident. Spleen: Normal Pancreas: Normal Adrenal glands: The adrenal glands are normal. Gallbladder: Normal Kidneys: No masses are evident. No hydronephrosis is present. No cysts are present. Delayed images were obtained through the kidneys, which remain unremarkable. Aorta: Normal Inferior vena cava: Normal. CT PELVIS: Loops of bowel visualized appears unremarkable. Couple of diverticuli may be present. No inflammatory changes are adjacent to suggest acute diverticulitis. Some fluid-filled distal small bowel loops are present. No dilated loops of bowel are evident. No suspicious inflammatory changes adjacent to loops of bowel is evident. This study is without oral contrast limiting bowel evaluation. Appendix: Normal as visualized. Urinary bladder: Normal. Genitourinary structures: Prostate is unremarkable. Osseous structures: No suspicious lytic or sclerotic lesions. IMPRESSIONS: 1. No suspicious abnormality of the bowel. Study is without oral contrast causing some limitation. M ild diverticulosis is present without evidence of acute diverticulitis. 2. Moderate fatty infiltration of the liver.
[2022-07-30] MEDS ORDERED: ONDANSETRON 4 MG ODT STARTER PACK 2 TAB BTL PO STA (22:20)
--- NOTE | 2022-07-30 22:21 | ED ---
General Adult HPI - General Chief complaint: Abdominal Pain Stated complaint: vomitting,abd pain Time Seen by Provider: 07/30/22 18:17 Source: patient, RN notes reviewed, old records reviewed Mode of arrival: wheelchair Limitations: no limitations - History of Present Illness Initial comments: Patient is a 41-year-old male with past medical history remarkable for asthma, celiac disease who presents emergency Department morning of multiple episodes of nonbilious nonbloody emesis as well as nonbloody diarrhea since this morning. Believes he is dehydrated. Endorses nonspecific abdominal pain as well. Denies any chest pain or shortness of breath. Denies any fevers or sick contacts. Denies any urinary complaints. Has no other acute complaints at this time. Presents over concern for his abdominal discomfort as well as the frequent episodes of nausea, vomiting, diarrhea. - Related Data Home Medications Medication Instructions Recorded Confirmed QUEtiapine [SEROquel] 200 mg PO HS 06/29/20 07/30/22 Linaclotide [Linzess] 290 mcg PO DAILY 09/15/20 07/30/22 Mirtazapine [Remeron] 30 mg PO HS 09/15/20 07/30/22 Rosuvastatin [Crestor] 10 mg PO HS 07/30/22 07/30/22 polyethylene glycoL 3350 [Miralax] 17 gm PO DAILY 07/30/22 07/30/22 Allergies Allergy/AdvReac Type Severity Reaction Status Date / Time varenicline [From Chantix] AdvReac Severe Suicidal Verified 07/30/22 20:14 Thoughts Review of Systems ROS Statement: Those systems with pertinent positive or pertinent negative responses have been documented in the HPI. Review of Systems: CONST: Denies fever EYES: Denies blurry vision ENT: Denies nasal congestion C/V: Denies Chest pain RESP: Denies shortness of breath GI: Endorses abdominal pain : Denies dysuria SKIN: Denies rash. MSK: Denies joint pain. NEURO: Denies headache ROS Other: All systems not noted in ROS Statement are negative. Past Medical History Past Medical History: Asthma Additional Past Medical History / Comment(s): back pain, ibs, celiac disease History of Any Multi-Drug Resistant Organisms: None Reported Past Surgical History: Appendectomy Additional Past Surgical History / Comment(s): oral SX. COLONOSCOPY/EGD Past Anesthesia/Blood Transfusion Reactions: No Reported Reaction Past Psychological History: Anxiety, Depression Smoking Status: Vaper Past Alcohol Use History: None Reported Past Drug Use History: None Reported - Past Family History Mother Family Medical History: No Reported History General Exam - General Exam Comments Initial Comments: General: Appears in no acute distress. HEAD: Normal with no signs of head trauma. EYES: PERRLA, EOMI, conjunctiva normal, no discharge. ENT: Hearing grossly intact, normal oropharynx.. Dry Mucous membrane. RESPIRATORY: Clear breath sounds bilaterally. No wheezes, rales, or rhonchi. C/V: Regular rate and rhythm. S1 and S2 auscultated, no edema, peripheral pulses 2+ and intact throughout ABD: Abdomen soft, nondistended. Tender to palpation in the suprapubic region. No guarding. No peritoneal signs. No rebound tenderness.. EXT: Normal range of motion, no obvious deformity SKIN: No rashes or lesions observed on exposed skin. NEURO: Alert and oriented 4. Limitations: no limitations Course Vital Signs 07/30/22 07/30/22 16:28 21:00 Temperature 97.4 F L Pulse Rate 84 90 Respiratory 18 18 Rate Blood Pressure 162/107 118/76 O2 Sat by Pulse 98 97 Oximetry Medical Decision Making - Medical Decision Making Was pt. sent in by a medical professional or institution (EMILY Bello, HEAD CONTROL CLERK, urgent care, hospital, or [place] health care facility...) When possible be specific @ -No Did you speak to anyone other than the patient for history (EMS, parent, family, police, friend...)? What history was obtained from this source @ -No Did you review nursing and triage notes (agree or disagree)? Why? @ -I reviewed and agree with nursing and triage notes Were old charts reviewed (outside hosp., previous admission, EMS record, old EKG, old radiological studies, urgent care reports/EKG's, [place] health care facility records)? Report findings @ -No old charts were reviewed Differential Diagnosis (chest pain, altered mental status, abdominal pain women, abdominal pain men, vaginal bleeding, weakness, fever, dyspnea, syncope, headache, dizziness, GI bleed, back pain, seizure, CVA, palpatations, mental health, musculoskeletal)? @ -Differential Abdominal Pain Men: Appendicitis, cholecystitis, diverticulosis, ischemic bowel, pancreatitis, hepatitis, UTI, gastroenteritis, AAA, incarcerated hernia, bowel obstruction, constipation, inflammatory bowel, hepatitis, peptic ulcer disease, splenic infarction, perforated viscus, testicular torsion, this is not meant to be an all-inclusive list EKG interpreted by me (3pts min.). @ -None done X-rays interpreted by me (1pt min.). @ -None done CT interpreted by me (1pt min.). @ -CT abdomen and pelvis reveals no obvious acute intra-abdominal process. U/S interpreted by me (1pt. min.). @ -None done What testing was considered but not performed or refused? (CT, X-rays, U/S, labs)? Why? @ -None What meds were considered but not given or refused? Why? @ -None Did you discuss the management of the patient with other professionals (professionals i.e. , PA, HEAD CONTROL CLERK, lab, RT, psych nurse, social worker delinquency prevention, manager of administration, teacher, customs and border protection officer, rifle case repairer)? Give summary @ -No Was smoking cessation discussed for >3mins.? @ -No Was critical care preformed (if so, how long)? @ -No Were there social determinants of health that impacted care today? How? (Homelessness, low income, unemployed, alcoholism, drug addiction, transportation, low edu. Level, literacy, decrease access to med. care, assisted, rehab)? @ -No Was there de-escalation of care discussed even if they declined (Discuss DNR or withdrawal of care, Hospice)? DNR status @ -No What co-morbidities impacted this encounter? (DM, HTN, Smoking, COPD, CAD, Cancer, CVA, ARF, Chemo, Hep., AIDS, mental health diagnosis, sleep apnea, morbid obesity)? @ -None Was patient admitted / discharged? Hospital course, mention meds given and route, prescriptions, significant lab abnormalities, going to OR and other pertinent info. @ -Based on the patient's presentation and physical exam, I'm concerned for dehydration as well as acute intra-abdominal process for the patient. Vital signs are within acceptable limits. We will obtain abdominal laboratory studies as well as a CT abdomen and pelvis. Patient was in agreement this plan. Be symptomatic pretreated with 2 L IV fluids, IV Protonix, IV Zofran and morphine. Patient's imaging is unremarkable. Labs are significant for mild leukocytosis of 12 which is likely reactive. Patient has a initial lactic acid of 3.4. Remainder the labs are unremarkable. On reevaluation, patient is asymptomatic and tolerating oral intake. I did recommend we obtain repeat lactic acid following fluid boluses. He was in agreement this plan. Patient is only received one fluid bolus, however due to lactic acid is elevated at 3.1. He remains asymptomatic at this time. I did recommend admission for further fluid hydration and monitoring and monitoring the lactic acid. It is likely elevated secondary to dehydration from multiple episodes of nausea, vomiting, diarrhea. Patient declines and would like to leave AGAINST MEDICAL ADVICE. The patient was apprised of the potential risks of leaving the hospital AGAINST MEDICAL ADVICE, including serious complications, permanent disability, and . At the time of my interview the patient, the patient was alert, oriented, and capable. Patient signed AMA form, which was witnessed and signed by nursing staff, and placed in patient's chart. I urged the patient to return to the hospital as soon as possible to complete evaluation and treatment. I will provide him with a prescription for ODT Zofran and instructed him on a course of follow-up with he does not improve. Recommended continued hydration. Undiagnosed new problem with uncertain prognosis? @ -No Drug Therapy requiring intensive monitoring for toxicity (Heparin, Nitro, Insulin, Cardizem)? @ -No Were any procedures done? @ -No Diagnosis/symptom? @ -Dehydration, abdominal pain of unknown etiology, nausea, vomiting, diarrhea, lactic acidosis Acute, or Chronic, or Acute on Chronic? @ -Acute Uncomplicated (without systemic symptoms) or Complicated (systemic symptoms)? @ -Complicated Side effects of treatment? @ -No Exacerbation, Progression, or Severe Exacerbation? @ -No Poses a threat to life or bodily function? How? (Chest pain, [place], [place], pneumonia, PE, COPD, DKA, ARF, appy, cholecystitis, CVA, Diverticulitis, Homicidal, Suicidal, threat to staff... and all critical care pts) @ -Yes, potentially. - Lab Data Result diagrams: 07/30/22 18:58 07/30/22 18:58 Lab Results 07/30/22 07/30/22 07/30/22 Range/Units 18:58 18:58 18:58 WBC 12.7 H (3.8-10.6) k/uL RBC 5.00 (4.30-5.90) m/uL Hgb 15.5 (13.0-17.5) gm/dL Hct 45.9 (39.0-53.0) % MCV 91.7 (80.0-100.0) fL MCH 31.1 (25.0-35.0) pg MCHC 33.9 (31.0-37.0) g/dL RDW 13.1 (11.5-15.5) % Plt Count 224 (150-450) k/uL MPV 10.3 Neutrophils % 90 % Lymphocytes % 5 % Monocytes % 4 % Eosinophils % 0 % Basophils % 0 % Neutrophils # 11.4 H (1.3-7.7) k/uL Lymphocytes # 0.6 L (1.0-4.8) k/uL Monocytes # 0.5 (0-1.0) k/uL Eosinophils # 0.1 (0-0.7) k/uL Basophils # 0.0 (0-0.2) k/uL PT 10.9 (9.0-12.0) sec INR 1.0 (<1.2) APTT 20.3 L (22.0-30.0) sec Sodium 140 (137-145) mmol/L Potassium 4.7 (3.5-5.1) mmol/L Chloride 102 (98-107) mmol/L Carbon Dioxide 23 (22-30) mmol/L Anion Gap 15 mmol/L BUN 15 (9-20) mg/dL Creatinine 0.85 (0.66-1.25) mg/dL Est GFR (CKD-EPI)AfAm >90 (>60 ml/min/1.73 sqM) Est GFR (CKD-EPI)NonAf >90 (>60 ml/min/1.73 sqM) Glucose 150 H (74-99) mg/dL Lactic Ac Sepsis Rflx Plasma Lactic Acid Kar (0.7-2.0) mmol/L Calcium 9.9 (8.4-10.2) mg/dL Total Bilirubin 0.9 (0.2-1.3) mg/dL AST 44 (17-59) U/L ALT 63 H (4-49) U/L Alkaline Phosphatase 56 (38-126) U/L Total Protein 8.5 H (6.3-8.2) g/dL Albumin 5.0 (3.5-5.0) g/dL Amylase 65 (30-110) U/L Lipase 14 L (23-300) U/L 07/30/22 07/30/22 07/30/22 Range/Units 18:58 19:38 21:25 WBC (3.8-10.6) k/uL RBC (4.30-5.90) m/uL Hgb (13.0-17.5) gm/dL Hct (39.0-53.0) % MCV (80.0-100.0) fL MCH (25.0-35.0) pg MCHC (31.0-37.0) g/dL RDW (11.5-15.5) % Plt Count (150-450) k/uL MPV Neutrophils % % Lymphocytes % % Monocytes % % Eosinophils % % Basophils % % Neutrophils # (1.3-7.7) k/uL Lymphocytes # (1.0-4.8) k/uL Monocytes # (0-1.0) k/uL Eosinophils # (0-0.7) k/uL Basophils # (0-0.2) k/uL PT (9.0-12.0) sec INR (<1.2) APTT (22.0-30.0) sec Sodium (137-145) mmol/L Potassium (3.5-5.1) mmol/L Chloride (98-107) mmol/L Carbon Dioxide (22-30) mmol/L Anion Gap mmol/L BUN (9-20) mg/dL Creatinine (0.66-1.25) mg/dL Est GFR (CKD-EPI)AfAm (>60 ml/min/1.73 sqM) Est GFR (CKD-EPI)NonAf (>60 ml/min/1.73 sqM) Glucose (74-99) mg/dL Lactic Ac Sepsis Rflx Y Plasma Lactic Acid Kar 3.4 H* 3.1 H* (0.7-2.0) mmol/L Calcium (8.4-10.2) mg/dL Total Bilirubin (0.2-1.3) mg/dL AST (17-59) U/L ALT (4-49) U/L Alkaline Phosphatase (38-126) U/L Total Protein (6.3-8.2) g/dL Albumin (3.5-5.0) g/dL Amylase (30-110) U/L Lipase (23-300) U/L Disposition Clinical Impression: Abdominal pain of unknown etiology, Nausea vomiting and diarrhea, Dehydration, Lactic acidosis Disposition: Left Against Medical Advice Is patient prescribed a controlled substance at d/c from ED?: No Referrals: Buck Hansen DO [Primary Care Provider] - 1-2 days Time of Disposition: 22:15
[2022-07-30 22:29] VITALS: BP 128/81; PULSE 86
== END 2022-07-30 22:38 | disposition left against medical advice (07) ==
LOC: EC 16:26
DX: R10.9 Unspecified abdominal pain (principal); R11.2 Nausea with vomiting, unspecified; R19.7 Diarrhea, unspecified; E86.0 Dehydration; E87.20 Acidosis, unspecified; K76.0 Fatty (change of) liver, not elsewhere classified; J45.909 Unspecified asthma, uncomplicated; F41.9 Anxiety disorder, unspecified; F32.A Depression, unspecified; F17.290 Nicotine dependence, other tobacco product, uncomplicated; Z79.899 Other long term (current) drug therapy; Z88.8 Allergy status to other drugs, medicaments and biological substances
CPT/HCPCS: 36415; 80053; 82150; 83605; 83690; 85025; 85610; 85730; 74177; 99284; 96374; 96375 ×2; 96361 ×4; J2270; J2405; S0119; C9113; Q9967

== ENCOUNTER → 2023-04-11 | Outpatient (CLI) | payer MEDICARE, OTHER ==
--- NOTE | 2023-04-11 12:41 | XR ---
EXAMINATION TYPE: XR wrist limited RT DATE OF EXAM: 04/11/2023 COMPARISON: NONE HISTORY: Pain TECHNIQUE: Four views submitted. FINDINGS: The osseous structures are intact. The joint spaces are preserved and there is no acute fracture or dislocation. IMPRESSION: 1. No definite acute fracture or dislocation if symptoms persist, follow-up study in 7 to 10 days wo uld be suggested
--- NOTE | 2023-04-11 12:44 | XR ---
EXAMINATION TYPE: XR forearm RT DATE OF EXAM: 04/11/2023 COMPARISON: NONE HISTORY: Pain Two views of the forearm demonstrate that the osseous structures appear to be intact and the joint sp aces appear to be preserved. There is no acute fracture or dislocation. Tiny olecranon spur. IMPRESSION: 1. No acute fracture or dislocation
--- NOTE | 2023-04-11 12:45 | XR ---
EXAMINATION TYPE: XR elbow limited RT DATE OF EXAM: 04/11/2023 COMPARISON: NONE HISTORY: Pain FINDINGS: Two views of the elbow demonstrate no pathologic joint effusion. The osseous structures are intact. There is no acute fracture or dislocation. Tiny olecranon spur IMPRESSION: 1. No acute fracture or dislocation. If symptoms persist follow-up study in 7 to 10 days could be ob tained.
== END | disposition home or self-care (01) ==
LOC: RADXRMAIN 11:54
PROVIDERS: ATTEND Nurse Practitioner Family
DX: M79.601 Pain in right arm (principal)